=== PATIENT | female | born 1980 | race Caucasian/White ===

== ENCOUNTER → 2020-09-03 09:59 | Outpatient (BNVA) | payer OTHER, SELFPAY | PROVIDERS: PCP Internal Medicine; Visit Provider Advanced Practice Midwife ==

== ENCOUNTER 2023-09-07 10:59 | Outpatient (AMB) | payer OTHER, SELFPAY ==
--- NOTE | 2023-09-07 11:08 | MHC.PC.OV ---
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 Intake Note: New patient visit Investigative Research Specialist Required: No Allergies No Known Allergies [No Known Allergies*] Allergy (Verified 09/07/23 11:37) Medication List - Last Reconciled 09/07/23 by IRINEO Son cetirizine (Zyrtec) 10 mg PO DAILY PRN melatonin mg PO Tobacco use date assessed: 09/07/23 Dental Screening Dental Screen Date: 09/07/23 Did you have a dental visit in the last 12 months?: No Did you have a dental problem in the last 6 months where you did not have access to dental care?: No Was dental information given to patient?: No HPI HPI Comments History of Present Illness Details 43-year-old female with asthma, MDD, generalized anxiety disorder, migraines, family history of breast cancer maternal aunt, paternal grandmother with ovarian cancer, post depression Status post removal of cyst from the right shoulder, tonsillectomy, hymenectomy procedure with Dr. 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 Used imitrex in the past with + effect. Ran out refills Was on sertraline in the past. Anxious at baseline. MDD worse in the winter. Tries to help by exercising. Stopped taking only d/t running out of refills. Last time 2020. Tried celexa, stopped during child bearing years. Not in counseling at this time; Has used someone in the past in [facility]. Ok w/ restarting Using melatonin and benadryl to help sleep with + effect. Referred to pelvic floor PT. Having urinary incont. [facility] Medical History (Updated 09/07/23 @ 12:08 by IRINEO Son) Asthma Depression Anxiety Migraines Annual physical exam Surgical History (Updated 09/03/20 @ 10:32 by Liss Licea [facility]) H/O removal of cyst Hx of tonsillectomy Family History (Updated 09/07/23 @ 11:21 by Mariana Storm [facility]) Maternal Aunt H/O mastectomy Father HTN (hypertension) Hypercholesteremia Brother Melanoma Paternal Grandmother Ovarian cancer Paternal Uncle FH: mental illness Substance use Paternal Aunt FH: mental illness Substance use Other Diabetes Social History (Updated 09/07/23 @ 11:14 by Mariana Storm [facility]) Housing: House Alcohol intake: never Patient Tobacco Use Status: Never used Tobacco e-Cigarette/Vaping Use: Never Used service: No Current occupational status: employed 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 1. Little interest or pleasure in doing things: not at all 2. Feeling down, depressed, or hopeless: not at all 3. Trouble falling or staying asleep, or sleeping too much: not at all 4. Feeling tired or having little energy: not at all 5. Poor appetite or overeating: not at all 6. Feeling bad about yourself - or that you are a failure or have let yourself or your family down: not at all 7. Trouble concentrating on things, such as reading the newspaper or watching television: not at all 8. Moving or speaking so slowly that other people could have noticed. Or the opposite - being so fidgety or restless that you have been moving around a lot more than usual: not at all 9. Thoughts that you would be better off or of hurting yourself in some way: not at all Total score: 0 Depression Screening Interpretation: Negative 31522 - PHQ-9 Billing: Yes Source: Developed by Drs. Migue Moreno, Cari Bazan, Mukesh Fischer and colleagues, with an educational rj from [employer]. Thrive Questionnaire Date Thrive assessed: 09/07/23 I am a: Patient What is your living situation today?: I have a steady place to live Within the past 12 months, did the food you bought not last and you didn't have the money to get more?: Never true Within the past 12 months, did you worry whether your food would run out before you got money to buy more?: Never true Do you have trouble paying for medicines?: No Do you have trouble getting transportation to medical appointments?: No Do you have trouble paying your heating and electricity bill?: No Do you have trouble taking care of your child, family member or friend?: No Do you have trouble with day-to-day activities such as bathing, preparing meals, shopping, managing finances, etc.?: No Are you currently unemployed and looking for a job?: No Are you interested in more education?: No Please select the resources that you would like help with: None Currently or been in a relationship where the following occur: no concerns reported THRIVE Score: 0 AUDIT C Alcohol Use Questionnaire (AUDIT-C) 1. How often do you have a drink containing alcohol?: Never 3. How often do you have six or more drinks on one occasion?: Never Total Score: 0 Score Reviewed/Action Taken: Yes PAULA-7 AMB Questionnaire PAULA-7 Feeling nervous, anxious, or on edge: 3 = Nearly every day Not being able to stop or control worryin = More than half the days Worrying too much about different things: 2 = More than half the days Trouble relaxin = Several days Being so restless that it is hard to sit still: 0 = Not at all Becoming easily annoyed or irritable: 0 = Not at all Feeling afraid as if something awful might happen: 0 = Not at all Total PAULA-7 score (0-4 normal; 5-9 mild; 10-14 moderate; 15-21 severe): 8 Source: Developed by Drs. Migue Moreno, Cari Bazan, Mukesh Fischer and colleagues, with an educational rj from [employer]. PAULA-7 Assessment Billing PAULA-7 Assessment Tool: PAULA-7 Assessment 10584 Review of Systems Const Details: Constitutional: Denies fever. Skin: Denies rash. Eye: Denies eye pain. ENMT: Denies sore throat and nasal congestion. Respiratory: Denies shortness of breath and cough. Gastrointestinal: Denies nausea, vomiting or abdominal pain. Cardiovascular: Denies chest pain and syncope. Genitourinary: Denies dysuria. Musculoskeletal: Denies back pain and extremity pain. Neurologic: Denies confusion, and weakness. Psychiatric: Denies suicidal thoughts and substance abuse. Allergy/ Immunologic: Denies impaired immunity. Physical exam (Primary Care) Vital Signs: Last Vital Signs Temp 97.9 F 09/07/23 11:16 Pulse 71 09/07/23 11:16 Resp 12 09/07/23 11:16 BP 104/64 09/07/23 11:16 Pulse Ox 99 09/07/23 11:16 Oxygen Delivery Method Room Air 09/07/23 11:16 BMI result Body Mass Index 21.3 Tobacco/Smoking Status: Tobacco use Status Tobacco use date assessed 09/07/23 09/07/23 11:18 Patient Tobacco Use Status Never used Tobacco 09/07/23 11:18 e-Cigarette/Vaping Use Never Used 09/07/23 11:18 Depression Screening Interpretation: Negative Currently or been in a relationship where the following occur: no concerns reported Const Other: General: Well developed, well nourished, in no acute distress. Appears stated age. Head: Normocephalic, atraumatic. Eyes: Pupils are equal, round and reactive to light and accommodation. Conjunctivae are clear. Vision grossly normal. Ears: TMs clear AU, EACS WNL Nose: Patent, without discharge. Mouth: There are no ulcers or lesions noted. No inflammation, no post nasal drip, no plaques nor exudates. Neck: Supple, no adenopathy or thyromegaly. Lungs: Clear to auscultation bilaterally. No rales, rhonchi or wheeze noted. Good air flow in all thomas. Heart: Regular rate and rhythm. No murmurs, click, rubs or gallops are noted. Abdomen: Bowel sounds present in all quadrants. The abdomen is soft, nontender, with no masses or organomegaly noted. No hernias are noted. Musculoskeletal: Joints are nontender, without swelling, redness, or effusions. Range of motion is observed to be normal. Pulses: Peripheral pulses are equal and palpable bilaterally. Extremities: No clubbing, cyanosis nor edema is noted. Neurologic: Gait and station normal. Cranial Nerves 2-12 intact. Motor strength grossly symmetrical and intact. No sensory loss. Balance normal. Skin: No rashes, ulcers, or lesions noted. Turgor is good. Skin color is good. Hair and nails are without abnormalities. Psych: Normal eye contact, affect and mood appropriate, and normal interactions. Patient is alert and appropriate to context. Extremities: No clubbing, cyanosis or edema. Assessment and Plan Assessment & Plan (1) Annual physical exam: Comment: Patient reports a family history of lipoprotein a in her brother. He was managed in [place] by Cardiology. We will check lipoprotein today and refer to cards PRN Code(s): Z00.00 - Encounter for general adult medical examination without abnormal findings (2) Laboratory exam ordered as part of routine general medical examination: Code(s): Z00.00 - Encounter for general adult medical examination without abnormal findings (3) Urinary incontinence: Comment: Refer to pelvic floor physical therapy however on a wait list. We will refer to urology for further evaluation and treatment. Encouraged to try some home exercises. Code(s): R32 - Unspecified urinary incontinence Qualifiers: Urinary Incontinence type: stress incontinence Qualified Code(s): N39.3 - Stress incontinence (female) (male) (4) Migraine headache without aura: Comment: Managed well with Imitrex in the past. I have renewed this prescription. Code(s): G43.009 - Migraine without aura, not intractable, without status migrainosus Qualifiers: Status migrainosus presence: without status migrainosus Intractability: not intractable Qualified Code(s): G43.009 - Migraine without aura, not intractable, without status migrainosus (5) MDD (major depressive disorder), recurrent episode: Comment: See PAULA care plan Code(s): F33.9 - Major depressive disorder, recurrent, unspecified Qualifiers: Major depression episode severity: mild Qualified Code(s): F33.0 - Major depressive disorder, recurrent, mild (6) PAULA (generalized anxiety disorder): Comment: Was on Celexa during child bearing years and then was switched to sertraline. She has been without this since 2020. Would like to restart. The plan will be to start sertraline 12.5 mg p.o. daily x2 weeks then increase to 25 mg p.o. daily. Declined referral to counselor today however she has resources to schedule an appointment should she feel this will be beneficial to her. Code(s): F41.1 - Generalized anxiety disorder Orders: Orders Comprehensive Met. Panel Today Z00.00 - Encounter for general adult medical examination without abnormal findings Hemoglobin A1c Today Z00.00 - Encounter for general adult medical examination without abnormal findings LDL Cholesterol Direct Today Z00.00 - Encounter for general adult medical examination without abnormal findings Microalbumin, Random (w Creat) Today Z00.00 - Encounter for general adult medical examination without abnormal findings Vitamin D 1,25 dihydroxy Today Z00.00 - Encounter for general adult medical examination without abnormal findings Lipoprotein A Today Z00.00 - Encounter for general adult medical examination without abnormal findings MM tomosynthesis screening BI Today Z12.31 - Encounter for screening mammogram for malignant neoplasm of breast TSH reflex Free T4 Today Z00.00 - Encounter for general adult medical examination without abnormal findings Referrals Urology Referral R32 - Unspecified urinary incontinence Medications: New sumatriptan succinate (Imitrex) take 1 tab at onset of headache; if no relief may repeat 1 tab after at least 2 hrs; max = 4 tabs/24 hr PO 10 tabs 5RF sertraline 1/2 tab QD x 2 weeks then increase to 1 tab QD 25 mg PO DAILY 30 tabs 1RF Patient Instructions: Return to office in 6 weeks to follow up on sertraline start. Sooner if needed. Health screenings for women ages 18 to 39 You should visit your health care provider from time to time, even if you are healthy. The purpose of these visits is to: Screen for medical issues Assess your risk for future medical problems Encourage a healthy lifestyle Update vaccinations and other preventive care services Help you get to know your provider in case of an illness Information Even if you feel fine, you should still see your provider for regular checkups. These visits can help you avoid problems in the future. For example, the only way to find out if you have high blood pressure is to have it checked regularly. High blood sugar and high cholesterol levels also may not have any symptoms in the early stages. A simple blood test can check for these conditions. There are specific times when you should see your provider or receive specific health screenings. The [place] Preventive Services Task Force publishes a list of recommended screenings. Below are screening guidelines for women ages 18 to 39. BLOOD PRESSURE SCREENING Your blood pressure should be checked at least once every 3 to 5 years if: Your blood pressure is in the normal range (top number less than 120 mm Hg and bottom number less than 80 mm Hg) You don't have risk factors for high blood pressure Ask your provider if you need your blood pressure checked more often if: The top number is 120 to 129 mm Hg or the bottom number is 70 to 79 mm Hg You have diabetes, heart disease, kidney problems, are overweight, or have certain other health conditions You have a first-degree relative with high blood pressure You are Black You had high blood pressure during a If the top number is 130 mm Hg or greater or the bottom number is 80 mm Hg or greater, this is considered stage 1 hypertension. Schedule an appointment with your provider to learn how you can reduce your blood pressure. Watch for blood pressure screenings in your area. Ask your provider if you can stop in to have your blood pressure checked. BREAST CANCER SCREENING Experts do not agree about the benefits of breast self-exams in finding breast cancer or saving lives. Talk to your provider about what is best for you. A screening mammogram is not recommended for most women under age 40. Your provider may discuss and recommend mammograms, MRI scans, or ultrasounds if you have an increased risk for breast cancer, such as: A mother or sister who had breast cancer at a young age (most often starting screening earlier than the age the close relative was diagnosed) You carry a high-risk genetic marker CERVICAL CANCER SCREENING Cervical cancer screening should start at age 21 years unless your provider advises otherwise. After the first test: Women ages 21 through 29 should have a Pap test every 3 years. Exoprts do not agree on whether HPV testing is recommended for this age group. Women ages 30 through 65 should be screened with either a Pap test every 3 years or the HPV test every 5 years or both tests every 5 years (called cotesting ). Women who have been treated for precancer (cervical dysplasia) should continue to have Pap tests for 20 years after treatment or until age 65, whichever is longer. If you have had your uterus and cervix removed (total hysterectomy), and you have not been diagnosed with cervical cancer or precancer (high grade cervical neoplasia), you do not need cervical cancer screening. CHOLESTEROL SCREENING Cholesterol screening should begin at: Age 45 for women with no known risk factors for coronary heart disease Age 20 for women with known risk factors for coronary heart disease Repeat cholesterol screening should take place: Every 5 years for women with normal cholesterol levels More often if changes occur in lifestyle (including weight gain and diet) More often if you have diabetes, heart disease, kidney problems, or certain other conditions DIABETES SCREENING You should be screened for diabetes starting at age 35 and then repeated every 3 years if you have no risk factors for diabetes. Screening may need to start earlier and be repeated more often if you have other risk factors for diabetes, such as: You have a first degree relative with diabetes. You are overweight or have obesity. You have high blood pressure, prediabetes, or a history of heart disease. Screening for diabetes should be done if you are planning to become and you are overweight and have other risk factors such as high blood pressure. DENTAL EXAM Go to the dentist once or twice every year for an exam and cleaning. Your dentist will evaluate if you need more frequent visits. EYE EXAM Have an eye exam every 5 to 10 years before age 40. If you have vision problems, have an eye exam every 2 years or more often if recommended by your provider. You should have an eye exam that includes an examination of your retina (back of your eye) at least every year if you have diabetes. IMMUNIZATIONS Commonly needed vaccines include: Flu shot: get one every year. COVID-19 vaccine: ask your provider what is best for you. Tetanus-diphtheria and acellular pertussis (Tdap) vaccine: have one at or after age 19 as one of your tetanus-diphtheria vaccines if you did not receive it as an adolescent. Tetanus-diphtheria: have a booster (or Tdap) every 10 years. Varicella vaccine: receive 2 doses if you never had chickenpox or the varicella vaccine. Hepatitis B vaccine: receive 2, 3, or 4 doses, depending on your exact circumstances. Measles, mumps, and rubella (MMR) vaccine: receive 1 to 2 doses if you are not already immune to MMR. Your provider can tell you if you are immune. Ask your provider about the human papillomavirus (HPV) vaccine if: You have not received the HPV vaccine in the past You have not completed the full vaccine series (you should catch up on this shot) Ask your provider if you should receive other immunizations if you have certain health problems that increase your risk for some diseases such as pneumonia. INFECTIOUS DISEASE SCREENING Women who are sexually active should be screened for chlamydia and gonorrhea up until age 25. Women 25 years and older should be screened for chlamydia and gonorrhea if at high risk. Screening for hepatitis C: All adults ages 18 to 79 should get a one-time test for hepatitis C. people should be screened at every . Screening for human immunodeficiency virus (HIV): All people ages 15 to 65 should get a one-time test for HIV. Depending on your lifestyle and medical history, you may also need to be screened for infections such as syphilis and HIV, as well as other infections. PHYSICAL EXAM All adults should visit their provider from time to time, even if they are healthy. The purpose of these visits is to: Screen for disease Assess your risk of future medical problems Encourage a healthy lifestyle Update your vaccinations and other preventive care services Maintain a relationship with a provider in case of an illness Your height, weight, and BMI should be checked at every exam. During your exam, your provider may ask you about: Depression and anxiety Diet and exercise Alcohol and tobacco use Safety issues, such as using seat belts, smoke detectors, and intimate partner violence Your medicines and risk for interactions SKIN SELF-EXAM Your provider may check your skin for signs of skin cancer, especially if you're at high risk, such as if you: Have had skin cancer before Have close relatives with skin cancer Have a weakened immune system OTHER SCREENING Talk with your provider about colon cancer screening if you have a strong family history of colon cancer or polyps, or if you have had inflammatory bowel disease or polyps yourself. Routine bone density screening of women under 40 is not recommended. Coding Level of Care Code Est Pt Prev Care 40-64y(77597) Diagnoses Annual physical exam Z00.00 Laboratory exam ordered as part of routine general medical examination Z00.00 Stress incontinence of urine N39.3 Urinary Incontinence type: stress incontinence Migraine without aura and without status migrainosus, not intractable G43.009 Status migrainosus presence: without status migrainosus Intractability: not intractable Mild episode of recurrent major depressive disorder F33.0 Major depression episode severity: mild PAULA (generalized anxiety disorder) F41.1 Additional Codes PAULA-7 Assessment Billing - PAULA-7 Assessment Tool: PAULA-7 Assessment [id number] ([id number])
[2023-09-07 11:16] VITALS: BP 104/64; PULSE 71; RESP 12; TEMP 36.6; O2SAT 99; BMI 21.3
== END 2023-09-07 12:15 | disposition home or self-care (01) ==
PROVIDERS: Visit Provider Nurse Practitioner Family
DX: Z00.00 Encounter for general adult medical examination without abnormal findings (principal); N39.3 Stress incontinence (female) (male); G43.009 Migraine without aura, not intractable, without status migrainosus; F33.0 Major depressive disorder, recurrent, mild; F41.1 Generalized anxiety disorder
CPT/HCPCS: 99396

== ENCOUNTER 2023-09-07 12:03 | Outpatient (REF) | payer OTHER, SELFPAY ==
[2023-09-07 15:00] LABS: Estimated Average Glucose 97 mg/dL
[2023-09-07 15:42] LABS: Microalbum/Creatinine Ratio Ur 137.7 ug/mg cr (<30)
[2023-09-07 15:45] LABS: Alanine Aminotransferase 9 U/L (0-31); Albumin Level 4.2 g/dL (3.5-5.0); Alkaline Phosphatase 63 U/L (39-117); Anion Gap 13 (12-20); Aspartate Amino Transferase 12 U/L (5-31); Bilirubin Total 0.3 mg/dL (0.0-1.0); Blood Urea Nitrogen 8 mg/dL (9-16); Calcium 9.4 mg/dL (8.4-10.2); Carbon Dioxide 27 mmol/L (22-29); Chloride 105 mmol/L (96-108); Estimated Glomerular Filt Rate > 60; Glucose Random 103 mg/dL (60-115); Potassium 3.5 mmol/L (3.3-5.1); Sodium 141 mmol/L (135-145); Total Protein 7.4 g/dL (6.5-8.0)
[2023-09-07 16:02] LABS: TSH reflex Free T4 0.56 uIU/mL (0.32-4.0)
[2023-09-08 06:34] LABS: LDL Cholesterol Direct 89 mg/dL (<100)
[2023-09-11 16:13] LABS: VITAMIN D (1,25 OH) D3 49 pg/mL; Vit D (1,25-Dihydroxy) Total 49 pg/mL (18-72); Vitamin D (1,25 OH) D2 <8 pg/mL
[2023-09-13 22:18] LABS: Lipoprotein A 16 nmol/L (<75)
== END 2023-09-07 12:04 | disposition home or self-care (01) ==
LOC: HO.WFDLDS 12:03
PROVIDERS: Visit Provider Nurse Practitioner Family
DX: Z00.00 Encounter for general adult medical examination without abnormal findings (principal)
CPT/HCPCS: 36415; 80053; 82043; 82570; 82652; 83036; 83695; 83721; 84443

== ENCOUNTER 2023-09-27 13:43 | Outpatient (REF) | payer OTHER, SELFPAY ==
--- NOTE | ~2023-09-27 | MM_ITS ---
EXAMINATION: MM SCREENING DIGITAL BREAST TOMOSYNTHESIS, BILATERAL CLINICAL INFORMATION: Screening. Asymptomatic. COMPARISON: Mammography: This is a baseline mammogram. TECHNIQUE: Digital breast tomosynthesis is performed in both the craniocaudal and mediolateral oblique views along with computer-aided detection (CAD). Synthesized 2D images are generated from the tomosynthesis. FINDINGS: The breasts are heterogeneously dense, which may obscure small masses (ACR BI-RADS breast composition Category c). There are calcifications superior aspect of the left breast which warrant additional mammographic imaging magnification. In the right breast, there are no significant masses, abnormal calcifications, or other abnormalities. MM/MM tomosynthesis screening BI IMPRESSION: Left breast calcifications warrant additional mammographic imaging with magnification. No mammographic signs of malignancy right breast. ASSESSMENT: BI-RADS BI-RADS 0 - Incomplete: Needs additional Imaging. RECOMMENDATION: Additional views of the left breast. Radiology department staff will contact the patient for additional imaging. Additional Imaging required This examination should not preclude the clinical evaluation of a suspicious palpable abnormality. This patient's information was entered into a reminder system with a target due date for their next mammogram.
== END 2023-09-27 13:44 | disposition home or self-care (01) ==
LOC: HO.MAMMO 13:43
PROVIDERS: PCP Internal Medicine; Visit Provider Nurse Practitioner Family
DX: Z12.31 Encounter for screening mammogram for malignant neoplasm of breast (principal)
CPT/HCPCS: 77063; 77067

== ENCOUNTER → 2023-09-27 13:45 | Outpatient (BNV) | payer OTHER, SELFPAY | PROVIDERS: PCP Internal Medicine; Visit Provider Radiology Diagnostic Radiology | DX: Z12.31 Encounter for screening mammogram for malignant neoplasm of breast (principal) | CPT/HCPCS: 77063; 77067 ==

== ENCOUNTER 2023-10-22 12:26 | Outpatient (AMB) | payer OTHER, SELFPAY ==
--- NOTE | 2023-10-22 12:31 | A.OFFPC_ITS ---
Vital Signs 10/22/23 12:35 Height 5 ft 4.96 in Weight 128 lb BMI 21.3 BP 110/66 Blood Pressure Location Lt brachial Position Sitting Pulse 64 Pulse Source Pulse Oximeter Pulse Oximetry (%) 99 Oxygen Delivery Method Room Air Intake Visit Reasons: 6 weeks 30 min w me f/u sertraline start Intake Note: Patient is here to follow up on sertraline. Allergies No Known Allergies [No Known Allergies*] Allergy (Verified 10/22/23 12:47) Medication List - Last Reconciled 10/22/23 by Jessica Perry, JOSE ALBERTO- cetirizine (Zyrtec) 10 mg PO DAILY PRN melatonin mg PO sertraline 25 mg PO DAILY sumatriptan succinate (Imitrex) take 1 tab at onset of headache; if no relief may repeat 1 tab after at least 2 hrs; max = 4 tabs/24 hr PO Tobacco use date assessed: 09/07/23 Dental Screening Dental Screen Date: 09/07/23 HPI HPI Comments History of Present Illness Details 43-year-old female with asthma, MDD, gen eralized anxiety disorder, migraines, family history of breast cancer maternal aunt, paternal grandmother with ovarian cancer Status post removal of cyst from the right shoulder, tonsillectomy, hymenectomy procedure with Dr. Gómez after child Family history: Brother with melanoma, father with hypertension Health maintenance Pap 09/03/2020 Mammogram 10/2023 BI-RADS BI-RADS 0 - Incomplete: Needs additional Imaging. 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 Cont to have some anxiety but not as severe Has not est care w/ counselor as of this time Cont to exercise to help cope + microalbumin will repeat today , stat es she is well hydrated. [facility] Medical History (Updated 10/22/23 @ 12:59 by JOSE ALBERTO Son-RODRICK) Asthma Depression Anxiety Migraines Annual physical exam Surgical History (Updated 09/03/20 @ 10:32 by Liss Licea, [facility]) H/O removal of cyst Hx of tonsillectomy Family History (Updated 09/07/23 @ 11:21 by Mariana Storm CMA) Maternal Aunt H/O mastectomy Father HTN (hypertension) Hypercholesteremia Brother Melanoma Paternal Grandmother Ovarian cancer Paternal Uncle FH: mental illness Substance use Paternal Aunt FH: mental illness Substance use Other Diabetes Social History (Updated 09/07/23 @ 11:14 by Mariana Storm CMA) Housing: House Alcohol intake: never Patient Tobacco Use Status: Never used Tobacco e-Cigarette/Vaping Use: Never Used service: No Current occupational status: employed 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 1. Little interest or pleasure in doing things: several days 2. Feeling down, depressed, or hopeless: not at all 3. Trouble falling or staying asleep, or sleeping too much: nearly every day 4. Feeling tired or having little energy: not at all 5. Poor appetite or overeating: not at all 6. Feeling bad about yourself - or that you are a failure or have let yourself or your family down: not at all 7. Trouble concentrating on things, such as reading the newspaper or watching television: several days 8. Moving or speaking so slowly that other people could have noticed. Or the opposite - being so fidgety or restless that you have been moving around a lot more than usual: not at all 9. Thoughts that you would be better off or of hurting yourself in some way: not at all Total score: 5 Depression Screening Interpretation: Negative Depression Screening Done: Yes 10532 - PHQ-9 Billing: Yes Source: Developed by Drs. Migue Moreno, Cari Bazan, Mukesh Fischer and colleagues, with an educational rj from [email or web address]. Thrive Questionnaire Date Thrive assessed: 09/07/23 PAULA-7 AMB Questionnaire PAULA-7 Date PAULA - 7 assessed: 10/22/23 Feeling nervous, anxious, or on edge: 1 = Several days Not being able to stop or control worryin = Several days Worrying too much about different things: 0 = Not at all Trouble relaxin = Several days Being so restless that it is hard to sit still: 0 = Not at all Becoming easily annoyed or irritable: 0 = Not at all Feeling afraid as if something awful might happen: 0 = Not at all Total PAULA-7 score (0-4 normal; 5-9 mild; 10-14 moderate; 15-21 severe): 3 Source: Developed by Drs. Migue Moreno, Cari Bazan, Mukesh Fischer and colleagues, with an educational rj from [email or web address]. PAULA-7 Assessment Billing PAULA-7 Assessment Tool: PAULA-7 Assessment 39191 Review of Systems Const All systems reviewed & are unremarkable except as noted in HPI and below Physical exam (Primary Care) Vital Signs: Last Vital Signs Pulse 64 10/22/23 12:35 BP 110/66 10/22/23 12:35 Pulse Ox 99 10/22/23 12:35 Oxygen Delivery Method Room Air 10/22/23 12:35 BMI result Body Mass Index 21.3 Tobacco/Smoking Status: Tobacco use Status Tobacco use date assessed 09/07/23 10/22/23 12:32 Patient Tobacco Use Status Never used Tobacco 10/22/23 12:32 e-Cigarette/Vaping Use Never Used 10/22/23 12:32 PHQ-9: PHQ-9 Score PHQ-9: Total score 5 10/22/23 12:47 Depression Screening Interpretation: Negative Thrive Assessment: Date of Thrive Assessment Date Thrive assessed 09/07/23 10/22/23 12:32 Const Other: awake alert NAD MMM RRR LS CTAB No CVAT Mood and affect appropriate Assessment and Plan Assessment & Plan (1) Microalbuminuria: Comment: 09/07/23 advised to hydrate, repeat obtained today Code(s): R80.9 - Proteinuria, unspecified (2) MDD (major depressive disorder), recurrent episode: Comment: See PAULA care plan Code(s): F33.9 - Major depressive disorder, recurrent, unspecified Qualifiers: Major depression episode severity: mild Qualified Code(s): F33.0 - Major depressive disorder, recurrent, mild (3) PAULA (generalized anxiety disorder): Comment: Was on Celexa during child bearing years and then was switched to sertraline. She has been without this since 2020. Will est care w/ counselor on her own Code(s): F41.1 - Generalized anxiety disorder Plan: This note is constructed using voice recognition software. While every effort has been made to ensure accuracy in proprietary trader, still errors may have been included Sometimes, these errors may affect the content or meaning of the given sentence . Total time spent caring for the patient today was 30 minutes. This includes time spent before the visit reviewing the chart, time spent during the visit, and time spent after the visit on documentation Orders: Orders Microalbumin, Random (w Creat) Today R80.9 - Proteinuria, unspecified Medications: New sertraline 50 mg PO DAILY 30 tabs 1RF Discontinued sertraline 1/2 tab QD x 2 weeks then increase to 1 tab QD Discontinued Reason: Doctor's Order 25 mg PO DAILY 30 tabs 1RF Patient Instructions: Increase sertraline from 25 mg daily to 50 mg daily. Establish care with a counselor Return to office in 6-8 weeks to follow up the increased. Sooner as needed. Coding Level of Care Code Est Pt Level 4 (41305) Diagnoses Microalbuminuria R80.9 Mild episode of recurrent major depressive disorder F33.0 Major depression episode severity: mild PAULA (generalized anxiety disorder) F41.1 Additional Codes PAULA-7 Assessment Billing - PAULA-7 Assessment Tool: PAULA-7 Assessment 24858 ([id number])
[2023-10-22 12:35] VITALS: BP 110/66; PULSE 64; O2SAT 99; BMI 21.3
== END 2023-10-22 12:59 | disposition home or self-care (01) ==
PROVIDERS: PCP Nurse Practitioner Family; Visit Provider Nurse Practitioner Family
DX: R80.9 Proteinuria, unspecified (principal); F33.0 Major depressive disorder, recurrent, mild; F41.1 Generalized anxiety disorder
CPT/HCPCS: 99214

== ENCOUNTER 2023-10-22 12:55 | Outpatient (REF) | payer OTHER, SELFPAY ==
[2023-10-22 15:34] LABS: Creatinine Urine 43.09 mg/dL; Microalbumin Urine < 5.0 mg/L
== END 2023-10-22 12:56 | disposition home or self-care (01) ==
LOC: HO.LAB 12:55
PROVIDERS: Visit Provider Nurse Practitioner Family
DX: R80.9 Proteinuria, unspecified (principal)
CPT/HCPCS: 82043; 82570

== ENCOUNTER 2023-10-29 09:24 | Outpatient (AMB) | payer OTHER, SELFPAY ==
--- NOTE | 2023-10-29 09:31 | A.OFFVIS_ITS ---
Intake Visit Reasons: Urinary incontinence Intake Note: New Patient is Present for Urinary Incontinence Urology Medication: None Antibiotic Allergies: None Blood Thinners: None PVR: 0 Cab Supervisor Required: No Allergies No Known Allergies [No Known Allergies*] Allergy (Verified 10/29/23 09:37) HPI Comments Details: 43-year-old female here for evaluation urinary incontinence. Past medical history asthma, MDD, generalized anxiety disorder, migraines, 2 vaginal deliveries 05/2013 (about 7-1/2 lb), 04/2014 (approximately 9 lb). She complains of urinary leakage associated with activities running, sneezing coughing. She does note an urge component as well. Urinalysis: Leukocytes negative blood negative. Bladder scan PVR 0 mL. The patient has tried Kegel's, but has not seen a pelvic floor physical therapist as yet. Plan discussed will refer to pelvic floor physical therapy however there has been a long wait list in the surrounding area, we will check renal bladder ultrasound and I have discussed evaluation with urodynamics. [facility] Medical History (Updated 10/29/23 @ 10:05 by Allen Edward MD) Hx: UTI (urinary tract infection) Asthma Depression Anxiety Migraines Annual physical exam Surgical History H/O removal of cyst Hx of tonsillectomy Family History Maternal Aunt H/O mastectomy Father HTN (hypertension) Hypercholesteremia Brother Melanoma Paternal Grandmother Ovarian cancer Paternal Uncle FH: mental illness Substance use Paternal Aunt FH: mental illness Substance use Other Diabetes Social History Housing: House Alcohol intake: never Patient Tobacco Use Status: Never used Tobacco e-Cigarette/Vaping Use: Never Used service: No Current occupational status: employed 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 Current occupational exposures/hazards: No Gender identity: Female Cognitive needs: No Hearing needs: No Vision needs: No Female Reproductive History Menstrual Age of Menarche: 12 Review of Systems Const All systems reviewed & are unremarkable except as noted in HPI and below Reports no additional complaints Eyes Reports no additional complaints ENT Reports no additional complaints Card Reports no additional complaints Resp Reports no additional complaints GI Reports no additional complaints Reports as per HPI Musc Reports no additional complaints Skin/Breast Reports system reviewed and no additional complaints, except as documented Neuro Reports no additional complaints Psych Reports no additional complaints Endo Reports no additional complaints Joseph/Lymph Reports no additional complaints Aller/Immun Reports no additional complaints Physical Exam Const General: cooperative, healthy appearing and no acute distress Orientation/consciousness: patient oriented x3 HEENT Head: Yes normal to inspection, Yes normocephalic and Yes atraumatic Eyes Conjunctivae: conjunctivae normal Neck Neck: Yes normal visual inspection and Yes trachea midline Chest Chest palpation & inspection: normal inspection of the chest Resp Effort & Inspection: normal respiratory effort Cardio Rate: regular rate GI Inspection: Yes normal to inspection Skin General skin exam: no rashes or lesions noted Neuro General: patient oriented x3 Extrem General: No edema Psych Appearance: grossly normal Office Procedures Post Void Residual Post Residual Void Post Void Residual (PVR): 0 [id number] Void Residual by ultrasound Results AMB Urinalysis, Automated UA Leukoctes 0 Mirna/uL Last Edit by Sharda Hammond [facility] on 10/29/23 09:47 UA Nitrite Negative Last Edit by Sharda Hammond [facility] on 10/29/23 09:47 UA Urobilinogen 0.2 mg/dL Last Edit by Sharda Hammond [facility] on 10/29/23 09:4 7 UA Protein 0 mg/dL Last Edit by Sharda Hammond [facility] on 10/29/23 09:47 UA pH 6.0 Last Edit by Sharda Hammond [facility] on 10/29/23 09:47 UA Blood 0 José Miguel/uL Last Edit by Sharda Hammond [facility] on 10/29/23 09:47 UA Specific [place] 1.010 Last Edit by Sharda Hammond [facility] on 10/29/23 09: 47 UA Ketone Negative Last Edit by Sharda Hammond [facility] on 10/29/23 09:47 UA Bilirubin 0 mg/dL Last Edit by Sharda Hammond [facility] on 10/29/23 09:47 UA Glucose 0 mg/dL Last Edit by Sharda Hammond [facility] on 10/29/23 09:47 Assessment & Plan Assessment & Plan (1) Urinary incontinence: Code(s): R32 - Unspecified urinary incontinence Category: Medical Qualifiers: Urinary Incontinence type: stress incontinence Qualified Code(s): N39.3 - Stress incontinence (female) (male) (2) Urinary urgency: Code(s): R39.15 - Urgency of urination Category: Medical (3) JOLENE (stress urinary incontinence, female): Code(s): N39.3 - Stress incontinence (female) (male) Category: Medical Plan Plan discussed will refer to pelvic floor physical therapy however there has been a long wait list in the surrounding area, we will check renal bladder ultrasound and I have discussed evaluation with urodynamics. Orders: Orders AMB Post Void Residual by ultrasound Today N39.3 - Stress incontinence (female) (male) AMB Urinalysis Automated Today Z13.9 - Encounter for screening, unspecified US retroperitoneal comp Today N39.3 - Stress incontinence (female) (male), R39.15 - Urgency of urination Patient Instructions: The patient had an opportunity to ask questions regarding treatment plan. The patient expressed understanding and agreement with the above treatment plan. The patient is aware they should contact our office by phone for worsening of their current condition or the appearance of new symptoms. Compliance is encouraged with any medications and followup testing that is ordered. It is a privilege to be allowed the opportunity to participate in the urologic care of your patient. If you have any questions or concerns regarding treatment for the above conditions please do not hesitate to contact me. The office telephone contact is [phone]. This note is constructed in part using voice recognition software. While every effort has been made to ensure accuracy senior chemical engineer errors may have been included. Yours sincerely, Allen Edward MD Coding Level of Care Code New Pt Level 4 (55235) Diagnoses Stress incontinence of urine N39.3 Urinary Incontinence type: stress incontinence Urinary urgency R39.15 JOLENE (stress urinary incontinence, female) N39.3 CPT Codes Post Residual Void - PVR CPT Code: 83275-Wiyj Void Residual by ultrasound ([id number])
== END 2023-10-29 10:14 | disposition home or self-care (01) ==
PROVIDERS: Visit Provider Urology
DX: N39.3 Stress incontinence (female) (male) (principal); R39.15 Urgency of urination; Z13.9 Encounter for screening, unspecified
CPT/HCPCS: 99204

== ENCOUNTER → 2023-10-29 09:24 | Outpatient (BNVA) | payer OTHER, SELFPAY | PROVIDERS: Visit Provider Urology | DX: N39.3 Stress incontinence (female) (male) (principal); R39.15 Urgency of urination | CPT/HCPCS: 51798; 81003 ==

== ENCOUNTER 2023-11-02 14:56 | Outpatient (REF) | payer OTHER, SELFPAY ==
--- NOTE | ~2023-11-02 | US_ITS ---
EXAMINATION: MM DIAGNOSTIC DIGITAL MAMMOGRAPHY, LEFT DIAGNOSTIC ULTRASOUND: LEFT CLINICAL INFORMATION: Follow-up left breast grouped calcifications seen mid depth 11:00 axis. COMPARISON: Mammography: 09/27/2023 screening baseline mammography. TECHNIQUE: Digital mammography is performed in the following views: 2-D spot magnification left CC and ML views. FINDINGS: The breasts are heterogeneously dense, which may obscure small masses (ACR BI-RADS breast composition Category c). There are regional subtle calcifications throughout the upper and lower aspects of the left breast. These have a benign appearance without clustering. There is a more focal group of calcifications in the 11:00 axis left breast, middle one third, which appears indeterminate. This is forming a circular shape, and may be conforming to an underlying mass or cyst. We will conduct ultrasound to exclude this possibility. No additional suspicious findings left breast. ULTRASOUND: CLINICAL INFORMATION: Evaluate for mass underlying grouped calcifications forming a rounded appearance. COMPARISON: None TECHNIQUE: Targeted sonographic evaluation was performed using a high frequency linear transducer. Attention to the left breast 11:00 axis was given. Both the technologist and myself scanned. Selected archived documentation. FINDINGS: LEFT BREAST: There is heterogeneously dense breast parenchyma present. No masses, cystic abnormalities, abnormal shadowing, parenchymal distortion is identified. No definite mass or cyst could be identified due to associated with the expected calcifications at 11:00. US/US breast LT limited mamm only IMPRESSION: Indeterminate calcifications LEFT breast 11:00 axis, middle one third. Recommend stereotactic biopsy of these calcifications. Findings and recommendations were discussed with the patient in detail. She is in agreement with the overall pattern. OVERALL ASSESSMENT: Mammography: BI-RADS 4 - Suspicious finding Ultrasound: BI-RADS 4 - Suspicious finding RECOMMENDATION: Biopsy recommended
== END 2023-11-02 14:57 | disposition home or self-care (01) ==
LOC: HO.MAMMO 14:56
PROVIDERS: PCP Nurse Practitioner Family; Visit Provider Internal Medicine
DX: R92.1 Mammographic calcification found on diagnostic imaging of breast (principal)
CPT/HCPCS: 76642; 77065

== ENCOUNTER → 2023-11-02 15:00 | Outpatient (BNV) | payer OTHER, SELFPAY | PROVIDERS: PCP Nurse Practitioner Family; Visit Provider Radiology Diagnostic Radiology | DX: R92.1 Mammographic calcification found on diagnostic imaging of breast (principal) | CPT/HCPCS: 76642; 77065 ==

== ENCOUNTER 2023-11-15 09:53 | Outpatient (REF) | payer OTHER, SELFPAY ==
--- NOTE | ~2023-11-15 | MM_ITS ---
EXAMINATION: STEREOTACTIC TOMOSYNTHESIS-GUIDED VACUUM-ASSISTED BREAST BIOPSY, LEFT SPECIMEN RADIOGRAPH, LEFT POST PROCEDURE DIGITAL MAMMOGRAM, LEFT CLINICAL INFORMATION: Indeterminate/suspicious grouped calcifications 11:00 axis left breast, middle depth, recommended for stereotactic biopsy. COMPARISON: Mammography 10/25/2023, 09/27/2023. TECHNIQUE/PROCEDURE: Informed consent was obtained from the patient after discussion of the benefits, risks, and alternatives to biopsy today. Patient appeared to understand. Gave opportunity for questions. Patient signed consent form. BIOPSY TABLE: [employer] Affirm Prone Biopsy System. LESION: Grouped calcifications 11:00 axis left breast middle depth. LOCAL ANESTHESIA: 4 mL 1% lidocaine; 9 mL 1% lidocaine with epinephrine. DERMATOTOMY: Single skin naomi dermatotomy performed. NEEDLE: [employer] Eviva 9-gauge vacuum assisted core biopsy device. APPROACH: lateral medial using lateral arm approach. TARGETING: Digital breast tomosynthesis used for targeting. CORES: 5. CLIP: [employer] SecurMark Cylinder-shaped marker. SPECIMEN RADIOGRAPH: Specimen radiograph is taken in separate room using digital mammography. The index calcifications are in the excised cores. Several of the calcifications remain in the breast. POST PROCEDURE UNILATERAL DIGITAL MAMMOGRAM: The post biopsy mammogram is performed in separate room using separate digital mammography equipment from the biopsy procedure. CC and ML 3-D views are obtained. The breasts are heterogeneously dense, which may obscure small masses (breast composition category: c). The clip marker is in position. The calcifications are markedly decreased at the biopsy site. No gross hematoma. The patient tolerated the procedure well. No immediate complications. Home instructions reviewed with the patient. Final pathology results are pending. MM/MM stereotactic biopsy LT IMPRESSION: 1. Digital tomosynthesis-guided core biopsy left breast calcifications 11:00 axis left breast with clip placement. 2. Specimen radiograph taken and post procedure mammogram. There is satisfactory positioning of the biopsy clip. 3. Final pathology results pending. An addendum report will be issued.
[2023-11-15] MEDS: Sodium Bicarbonate 8.4% 50 MEQ/50 ML VIAL SUBCUT (11:24)
[2023-11-15] MEDS: Lidocaine HCl 1 % 20 ML VIAL 18 ML SUBCUT (11:26)
== END 2023-11-15 09:54 | disposition home or self-care (01) ==
LOC: HO.MAMMO 09:53
PROVIDERS: PCP Internal Medicine; Visit Provider Surgery
DX: R92.1 Mammographic calcification found on diagnostic imaging of breast (principal)
CPT/HCPCS: 19081; 88305; A4648

== ENCOUNTER → 2023-11-15 10:00 | Outpatient (BNV) | payer OTHER, SELFPAY | PROVIDERS: PCP Internal Medicine; Visit Provider Radiology Diagnostic Radiology | DX: R92.1 Mammographic calcification found on diagnostic imaging of breast (principal) | CPT/HCPCS: 19081; 77065 ==

== ENCOUNTER 2023-11-27 10:59 | Outpatient (AMB) | payer OTHER, SELFPAY ==
--- NOTE | 2023-11-27 11:02 | MHC.OFFVIS ---
Vital Signs 11/27/23 11:10 Height 5 ft 4 in Weight 124 lb BMI 21.3 BP 109/56 L Blood Pressure Location Lt brachial Position Sitting Pulse 54 Intake Visit Reasons: biopsy results (not seen pre-bx) Intake Note: Patient is seen in office for stereotactic biopsy results, following left breast for calcifications. 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 This was performed at the [facility] on 11/15/2023. Subsequent pathology revealed fibrocystic change with columnar cell change, sclerosing adenosis with microcalcifications, and radial sclerosing lesion/radial scar, no evidence of malignancy. She denies a previous history of breast problems or breast surgery. Her family history is significant for a maternal aunt with breast cancer and paternal grandmother with ovarian cancer. She also reports several great aunts with breast cancer and her brother was treated for melanoma. She denies a previous history of breast problems or breast surgeries. She is . [facility] Medical History Hx: UTI (urinary tract infection) Asthma Depression Anxiety Migraines Annual physical exam Surgical History H/O removal of cyst Hx of tonsillectomy Family History Maternal Aunt H/O mastectomy Breast CA, Onset Age: 36 Father HTN (hypertension) Hypercholesteremia Brother Melanoma Paternal Grandmother Ovarian cancer Paternal Uncle FH: mental illness Substance use Paternal Aunt FH: mental illness Substance use Other Diabetes Social History Housing: House Alcohol intake: never Patient Tobacco Use Status: Never used Tobacco e-Cigarette/Vaping Use: Never Used service: No Current occupational status: employed 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 Current occupational exposures/hazards: No Gender identity: Female Cognitive needs: No Hearing needs: No Vision needs: No Female Reproductive History Menstrual Age of Menarche: 12 Date of last menstrual period: 10/25/23 Total pregnancies: 2 Number of Living Children: 2 Review of Systems Const All systems reviewed & are unremarkable except as noted in HPI and below Denies chills, Denies fever(s), Reports headache(s), Denies poor appetite and Denies weakness ENT Reports headache(s) Card Denies chest pain, Denies irregular heart rhythm, Denies palpitations and Denies dyspnea Resp Denies cough, Denies excessive phlegm production and Denies dyspnea GI Denies abdominal pain, Denies bloating, Denies change in bowel habits, Denies constipation, Denies heartburn, Denies diarrhea, Denies nausea and Denies vomiting Denies urinary frequency Musc Denies back pain, Denies muscle weakness and Denies numbness Skin/Breast Denies changing lesions and Denies unusual bruising Neuro Reports headache(s), Denies numbness, Denies paresthesias and Denies weakness Psych Denies anxiety and Denies depression Endo Denies palpitations Joseph/Lymph Denies lymphadenopathy Physical Exam Vital Signs: Last Vital Signs Pulse 54 11/27/23 11:10 BP 109/56 L 11/27/23 11:10 BMI result Body Mass Index 21.3 Const General: cooperative and no acute distress Nutritional Appearance: well nourished Orientation/consciousness: patient oriented x3 Limitations: no limitations HEENT Head: Yes normocephalic and Yes atraumatic Ears: hearing grossly normal bilaterally Chest Other: Left breast: No skin change, no nipple retraction, no nipple discharge, no palpable mass, no enlarged lymph nodes. Biopsy site in the upper outer quadrant with a small amount of ecchymosis. Right breast: No skin change, no nipple retraction, no nipple discharge, no palpable mass, no enlarged lymph nodes Resp Effort & Inspection: normal respiratory effort, no audible wheezes, no cough and no respiratory distress Cardio Jugular venous distension: no JVD GI Inspection: Yes normal to inspection Skin Other: Warm, dry, no rash Neuro General: patient oriented x3 Extrem General: Yes no clubbing, cyanosis or edema Assessment & Plan Assessment & Plan (1) Radial scar of left breast: Code(s): N64.89 - Other specified disorders of breast Category: Medical Plan 43-year-old female patient presenting with a recent mammogram which revealed a cluster of calcifications in the left breast at the upper outer quadrant felt to be suspicious for malignancy. She subsequently underwent stereotactic guided core biopsy 1 week ago which revealed benign breast tissue with radial scar. We discussed the theoretical risk of the radial scar containing a malignancy in the recommendation of performing a lumpectomy to assure complete removal. She expressed understanding and consents to a left breast lumpectomy with localizer. We also discussed her strong family history of cancer including breast cancer in her mother and ovarian cancer in her paternal grandmother. She wishes to proceed with genetic testing today. She will return in approximately 6 weeks to review the results. Coding Level of Care Code New Pt Level 4 (59721) Diagnoses Radial scar of left breast N64.89
[2023-11-27 11:10] VITALS: BP 109/56; PULSE 54; BMI 21.3
== END 2023-11-27 11:29 | disposition home or self-care (01) ==
PROVIDERS: PCP Internal Medicine; Visit Provider Surgery
DX: R92.1 Mammographic calcification found on diagnostic imaging of breast (principal); N64.89 Other specified disorders of breast
CPT/HCPCS: 99204

== ENCOUNTER → 2023-11-27 10:59 | Outpatient (BNVA) | payer OTHER, SELFPAY | PROVIDERS: PCP Internal Medicine; Visit Provider Surgery ==

== ENCOUNTER 2023-12-06 10:35 | Outpatient (REF) | payer OTHER, SELFPAY ==
--- NOTE | ~2023-12-06 | US_ITS ---
EXAMINATION: US RETROPERITONEAL COMPLETE (RENAL) CLINICAL INFORMATION: Stress incontinence. COMPARISON: None available. TECHNIQUE: Real-time imaging of the kidneys and bladder. Limited visualization due to bowel gas. FINDINGS: RIGHT KIDNEY: 11.2 x 4.4 x 5.2 cm (SAG x AP x TRV). Mild hydronephrosis versus extrarenal pelvis. No renal calculi. Renal cortical thickness is normal. LEFT KIDNEY: 11.5 x 5.5 x 5.0 cm (SAG x AP x TRV). Mild hydronephrosis versus extrarenal pelvis. No renal calculi. Renal cortical thickness is normal. BLADDER: Well-distended and unremarkable. Bilateral ureteral jets are demonstrated. Prevoid bladder volume is 682 mL. Postvoid bladder volume is 8.8 mL. US/US retroperitoneal comp IMPRESSION: Mild bilateral hydronephrosis versus extrarenal pelvis. No renal calculi.
== END 2023-12-06 10:36 | disposition home or self-care (01) ==
LOC: HO.US 10:35
PROVIDERS: PCP Internal Medicine; Visit Provider Urology
DX: N39.3 Stress incontinence (female) (male) (principal); R39.15 Urgency of urination
CPT/HCPCS: 76770

== ENCOUNTER 2023-12-19 07:56 | Outpatient (REF) | payer OTHER, SELFPAY ==
--- NOTE | ~2023-12-19 | MM_ITS ---
EXAMINATION: MM MAMMOGRAM GUIDED RFID LOCALIZATION BREAST, LEFT CLINICAL INFORMATION: Stereotactic biopsy left breast 1:00 axis, middle one third calcifications yielding microcalcifications with radial sclerosing lesion. COMPARISON: Stereotactic biopsy left breast 11/05/2023, diagnostic left mammography 11/02/2023, mammography 09/27/2023. TECHNIQUE NEEDLE LOC: Proper informed consent is obtained from the patient after discussion of the procedure, potential risks and complications, and alternatives including declining the procedure today. Patient was given an opportunity for questions. The patient appeared to understand. The patient consented to the procedure and signed the consent form. GUIDANCE: Digital mammography. APPROACH: Cranio-caudal. TARGET: Cylinder-shaped biopsy clip. ANESTHESIA: carbonated lidocaine 1%: 3 mL. LOCALIZATION SYSTEM: [employer] LOCallizer Wire-Free Guidance System with 12g needle applicator. RADIOFREQUENCY TAG: ID # [id number] DERMATOTOMY: Single 1 mm skin-naomi dermatotomy performed. RF Tag ID confirmed with LOCalizer Guidance System prior to placement. The skin is prepped and local anesthesia administered. The needle is positioned and RFID tag deployed. Final images demonstrate the LOCalizer RF tag to reside immediately abutting the cylinder-shaped biopsy clip and residual calcifications. The patient tolerated the procedure well and had no immediate complications. Dressing placed and home instructions reviewed. MM/MM RF Tag device LT IMPRESSION: -Status post left breast RFID localization. Final location of the RFID tag is ideal. -Final CC and ML images are appropriately labeled for OR reference.
[2023-12-19] MEDS: Lidocaine HCl 1 % MPF 5 ML VIAL 3 ML SUBCUT (08:46)
[2023-12-19] MEDS: Sodium Bicarbonate 8.4% 50 MEQ/50 ML VIAL SUBCUT (08:47)
== END 2023-12-19 07:57 | disposition home or self-care (01) ==
LOC: HO.MAMMO 07:56
PROVIDERS: PCP Internal Medicine; Visit Provider Surgery
DX: N64.89 Other specified disorders of breast (principal); Z80.3 Family history of malignant neoplasm of breast
CPT/HCPCS: 19281; C1819

== ENCOUNTER → 2023-12-19 08:00 | Outpatient (BNV) | payer OTHER, SELFPAY | PROVIDERS: PCP Internal Medicine; Visit Provider Radiology Diagnostic Radiology | DX: R92.1 Mammographic calcification found on diagnostic imaging of breast (principal) | CPT/HCPCS: 19281 ==

== ENCOUNTER 2023-12-26 06:00 | Day surgery (SDC) | payer OTHER, SELFPAY ==
[2023-12-24 09:14] VITALS: BMI 22.0
--- NOTE | 2023-12-24 14:15 | P.CONAN_ITS ---
Documented by User: Sloane Rothman NP 12/24/23 14:16 HPI - Anesthesia Eval Consult details Narrative: 43yo F for Left Breast Lumpectomy w/LOCalizer PMFSH Active Problems Active Problems: All Active Problems Radial scar of left breast (Acute) JOLENE (stress urinary incontinence, female) (Acute) Urinary urgency (Acute) Microalbuminuria (Acute) PAULA (generalized anxiety disorder) (Acute) MDD (major depressive disorder), recurrent episode (Acute) Migraine headache without aura (Acute) Urinary incontinence (Acute) Laboratory exam ordered as part of routine general medical examination (Acute) Cervical cancer screening (Acute) Family history of breast cancer in female (Acute) Well woman exam with routine gynecological exam (Acute) Annual physical exam (Acute) Past Medical History Medical History Hx: UTI (urinary tract infection) Asthma Depression Anxiety Migraines Annual physical exam Family History Family History Maternal Aunt H/O mastectomy Breast CA, Onset Age: 36 Father HTN (hypertension) Hypercholesteremia Brother Melanoma Paternal Grandmother Ovarian cancer Paternal Uncle FH: mental illness Substance use Paternal Aunt FH: mental illness Substance use Other Diabetes Surgical History Surgical History (Updated 12/26/23 @ 06:41 by Franca Prakash RN) H/O surgical removal of hymen H/O removal of cyst Hx of tonsillectomy Social History Social History Housing: House Are you a primary health care marketing specialist to a significant other at home: No Do you presently have visiting nurse or other home services: No Alcohol intake: never Patient Tobacco Use Status: Never used Tobacco e-Cigarette/Vaping Use: Never Used service: No Current occupational status: employed 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 Current occupational exposures/hazards: No Gender identity: Female Cognitive needs: No Hearing needs: No Vision needs: No Meds Allergies Allergy/AdvReac Type Severity Reaction Status Date / Time No Known Allergies Allergy Verified 12/26/23 06:17 [No Known Allergies*] Home Medications ?Medication ?Instructions ?Recorded ?Confirmed ?Last Taken ?Type cetirizine 10 mg capsule (Zyrtec) 10 mg PO DAILY PRN Allergy Symptoms 09/07/23 12/26/23 Unknown History melatonin 5 mg capsule 5 mg PO DAILY 09/07/23 12/26/23 12/25/23 History Exam Height,Weight and Vital Signs: Height 5 ft 4 in Weight 58.06 kg Pertinent Lab Results Pertinent Lab Results: Laboratory Tests 03/19/18 09/07/23 17:38 12:05 WBC 12.6 H Hgb 13.1 Hct 38.3 Plt Count 327 Sodium 141 Potassium 3.5 Chloride 105 Carbon Dioxide 27 BUN 8 L Creatinine 0.72 Assessment and Plan Assessment Anesthesia Assessment: Chart Reviewed Documented by User: Saima Boss MD 12/26/23 07:25 [facility] Past Medical History Medical History Hx: UTI (urinary tract infection) Asthma Depression Anxiety Migraines Annual physical exam Family History Family History Maternal Aunt H/O mastectomy Breast CA, Onset Age: 36 Father HTN (hypertension) Hypercholesteremia Brother Melanoma Paternal Grandmother Ovarian cancer Paternal Uncle FH: mental illness Substance use Paternal Aunt FH: mental illness Substance use Other Diabetes Family history of problems with anesthesia: No Surgical History Surgical History (Updated 12/26/23 @ 06:41 by Franca Prakash RN) H/O surgical removal of hymen H/O removal of cyst Hx of tonsillectomy History of Problems with Anesthesia: No Social History Social History Housing: House Are you a primary health care marketing specialist to a significant other at home: No Do you presently have visiting nurse or other home services: No Alcohol intake: never Patient Tobacco Use Status: Never used Tobacco e-Cigarette/Vaping Use: Never Used service: No Current occupational status: employed 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 Current occupational exposures/hazards: No Gender identity: Female Cognitive needs: No Hearing needs: No Vision needs: No Meds Allergies Allergy/AdvReac Type Severity Reaction Status Date / Time No Known Allergies Allergy Verified 12/26/23 06:17 [No Known Allergies*] Home Medications ?Medication ?Instructions ?Recorded ?Confirmed ?Last Taken ?Type cetirizine 10 mg capsule (Zyrtec) 10 mg PO DAILY PRN Allergy Symptoms 09/07/23 12/26/23 Unknown History melatonin 5 mg capsule 5 mg PO DAILY 09/07/23 12/26/23 12/25/23 History Exam Airway Mallampati Class: II (top front left tooth cap/ implant) TM Dist: >3cm Neck ROM: Full Heart: rrr Lungs: cta Assessment and Plan Assessment Anesthesia Assessment: Anesthesia Plan Discussed Final Anesthetic Review Family History of Problems with Anesthesia: No History of Problems with Anesthesia: No NPO: Yes ASA Class: II Final Preanesthetic Review: No Changes in Pt Med Stat, Meds/Allgs Chart Reviewed and Consent Obtained/Reviewed Patient Risk: Low Procedure Risk: Low Anesthetic Plan Anesthetic Plan: GA Disposition: Standard PACU
[2023-12-26] VITALS (7 sets, daily range): BP systolic 100–114; BP diastolic 65–77; PULSE 62–79; RESP 16; TEMP 36.6–36.8; O2SAT 99–100; BMI 21.5
--- NOTE | ~2023-12-26 | MM_ITS ---
EXAMINATION: MM SPECIMEN X-RAY BREAST, LEFT BREAST CLINICAL INDICATION: Excision of calcifications yielding radial sclerosing lesion left breast 1:00 axis, middle one third. COMPARISON: Localization left breast 12/19/2023. Stereotactic guided left breast biopsy 11/15/2023. TECHNIQUE: 6 radiographs of the excised breast tissue is performed using digital mammography. FINDINGS: The specimen radiographs demonstrate the RFID tag, the residual calcifications, and the biopsy clip contained within different tiny specimens taken. The specimens contain the index calcifications of concern. Results were called to Dr. Olman Slater in the operating room at the time of imaging. Electronically signed by: Luis Ahumada MD 12/26/2023 12:08 PM EDT
[2023-12-26 06:18] LABS: UPreg QC Valid YES; Urine Pregnancy NEGATIVE (NEGATIVE)
[2023-12-26] MEDS: Lactated Ringers 1,000 ML 100 ML IVCONT (06:56)
--- NOTE | 2023-12-26 07:23 | MHC.SHP ---
Pre-Procedural Eval Section A - 24 Hr Update-Section A only Date of Service: 12/26/23 The patient is an INPATIENT: No Changes since office visit: Yes Patient answered all questions; No Cold of Flu in the past 2 weeks, No New Medical Problems and No Changes in Medication The patient has been examined within 24 hours of the surgical procedure. The History & Physical has been completed within 30 days and I have reviewed it.: Yes Section B - Complete if H&P > 30 days Chief Complaint: Other specified disorders of breast Allergies: Allergies Allergy/AdvReac Type Severity Reaction Status Date / Time No Known Allergies Allergy Verified 12/26/23 06:17 [No Known Allergies*] Plan Diagnosis/Plan: Unchanged I have reviewed the history and physical and performed a pertinent physical examination on my patient. No changes have occurred unless specified. Time Spent With Patient Time: Total time managing care of this patient today ____ minutes.
--- NOTE | 2023-12-26 08:39 | W.PM.OPN ---
Operative Note Operative Note Date of Service: 12/26/23 Narrative: Preoperative diagnosis: Radial scar left breast Postoperative diagnosis:same Procedure:Right breast lumpectomy with localizer Surgeon: Olman Slater MD Process Laboratory Specialist: Aliyah Ross PA-C Anesthesia:General LMA Indications for procedure:43-year-old female patient presenting with a recent screening mammogram which revealed a cluster of calcifications in the left breast in the upper outer quadrant. This was felt to be suspicious for malignancy and stereotactic guided core biopsy performed. This revealed a radial scar. She presents today for wider excision to assure complete removal. Operative findings: Initial specimen contain the localizer clip however the barrel marking clip could not be identified. Additional specimen from the superior medial and superior lateral margins were obtained and imaged and did not contain the barrel clip. Finally the inferior border was reexcised and contained both microcalcifications and the barrel clip. All specimens were sent to pathology for further examination. Specimen: Left breast lumpectomy Estimated blood loss: 5 mL Complications: none Procedure details: patient was brought to the OR placed in a supine position. After administering general anesthesia the patient's left breast was prepped with ChloraPrep and draped in a sterile fashion. A surgical time-out was called the consent confirmed. Patient received preoperative antibiotics and Venodyne boots were in place. Local anesthesia was then infiltrated in a curvilinear fashion over the nipple-areolar complex. A curvilinear incision was then made from proximally the 11 o'clock to 2 o'clock position in the areolar margin. This was carried out through subcutaneous tissue using electrocautery. Superior and inferior skin flaps were then created with electrocautery. Using the localizer, the area of the clip was identified. the clip was identified and core was specimen surrounding this obtained using electrocautery and Metzenbaum scissors. The specimen was removed and imaged. The localizer clip was identified however the marking clip could not be identified. As noted above 3 additional specimens were obtained including the superior medial, superior lateral and inferior margin. Finally the inferior margin contain the barrel clip along with cluster of microcalcifications. All specimens were sent to pathology for further examination. Hemostasis was achieved using free ties of 3-0 Polysorb and electrocautery. The deep breast tissue was then reapproximated using interrupted 3-0 Polysorb sutures. Dermis was reapproximated using interrupted 3-0 Polysorb sutures. Skin was then closed using a running subcuticular 4-0 Polysorb suture. Steri-Strips, sterile gauze and Tegaderm were then applied. The patient tolerated the procedure well. Sponge, instrument, and needle counts were reported as correct. The patient was transferred to PACU in stable condition.
== END 2023-12-26 09:47 | disposition home or self-care (01) ==
PROVIDERS: Nurse Practitioner; PCP Nurse Practitioner Family; Visit Provider Surgery
PROC: (CPT 19301; principal; 2023-12-26 07:30)
DX: N64.89 Other specified disorders of breast (principal); N60.22 Fibroadenosis of left breast; N60.92 Unspecified benign mammary dysplasia of left breast; N60.82 Other benign mammary dysplasias of left breast; R92.0 Mammographic microcalcification found on diagnostic imaging of breast; J45.909 Unspecified asthma, uncomplicated; F32.A Depression, unspecified; F41.9 Anxiety disorder, unspecified; G43.909 Migraine, unspecified, not intractable, without status migrainosus; Z79.899 Other long term (current) drug therapy; Z98.890 Other specified postprocedural states
CPT/HCPCS: 19301; 81025; 88307; 88329; 88341; 88342; J0690; J2250; J2704; J2795; J3010

== ENCOUNTER → 2023-12-26 06:00 | Outpatient (BNV) | payer OTHER, SELFPAY | PROVIDERS: PCP Nurse Practitioner Family; Visit Provider Surgery | DX: N64.89 Other specified disorders of breast (principal) | CPT/HCPCS: 19301 ==

== ENCOUNTER 2023-12-31 13:42 | Outpatient (REF) | payer OTHER, SELFPAY ==
[2023-12-31 16:01] LABS: Appearance Urine Clear; Color Urine Yellow; Glucose Urine UA Negative (Negative); Leukocyte Esterase Urine Negative (Negative); Nitrite Urine Negative (Negative); PH 6.5 (5.0-9.0); Specific Gravity - Urine <= 1.005 (1.005-1.025); Urine Blood Negative (Negative); Urine Ketones Negative (Negative); Urine Protein Negative (Neg-Trace)
[2023-12-31 16:09] LABS: Bacteria Urine None Seen (None Seen); Hyaline Casts Urine 0-2 /LPF (0-2); RBC Urine 0-2 /HPF (0-2); Squamous Epithelial Cell Urine 0-2 /HPF (0-2); WBC Urine 0-5 /HPF (0-5)
== END 2023-12-31 13:43 | disposition home or self-care (01) ==
LOC: HO.LAB 13:42
PROVIDERS: PCP Nurse Practitioner Family; Visit Provider Urology
DX: R39.15 Urgency of urination (principal); N39.3 Stress incontinence (female) (male)
CPT/HCPCS: 81001; 87086

== ENCOUNTER 2024-01-04 09:53 | Outpatient (AMB) | payer OTHER, SELFPAY ==
--- NOTE | 2024-01-04 09:54 | MHC.OFFVIS ---
Intake Visit Reasons: urodynamics Intake Note: Patient is present for URODYNAMIC Urology Medication:NONE Antibiotic Allergy:NONE Blood Thinner:NONE Global Process Owner Required: No Allergies No Known Allergies [No Known Allergies*] Allergy (Verified 01/04/24 09:55) HPI Comments Details: 01/03/24--Here for UDS. CMG parameters detailed below. Interpretation: During the procedure the bladder was stable during the filling phase. Detrusor instability was not observed. Leakage was observed with cough and Valsalva. Appropriate EMG changes in the waveforms were noted through out the study. Findings consistent with intrinsic sphincter deficiency. 20 minutes spent in review of records pertaining to this visit and including cecb-sd-[id number] discussion with the patient and documentation of this visit. I have discussed treatment options to include urethral bulking and sling procedures. Risks and benefits discussed including but not limited to infection, bleeding, urinary retention, need to repeat or necessity to perform an alternative procedure. The patient is agreeable for urethral bulking procedure, Bulkamid. Review of chart: 10/29/23--43-year-old female here for evaluation urinary incontinence. Past medical history asthma, MDD, generalized anxiety disorder, migraines, 2 vaginal deliveries 05/2013 (about 7-1/2 lb), 04/2014 (approximately 9 lb). She complains of urinary leakage associated with activities running, sneezing coughing. She does note an urge component as well. Urinalysis: Leukocytes negative blood negative. Bladder scan PVR 0 mL. The patient has tried Kegel's, but has not seen a pelvic floor physical therapist as yet. Plan discussed will refer to pelvic floor physical therapy however there has been a long wait list in the surrounding area, we will check renal bladder ultrasound and I have discussed evaluation with urodynamics. [facility] Medical History Hx: UTI (urinary tract infection) Asthma Depression Anxiety Migraines Annual physical exam Surgical History H/O surgical removal of hymen H/O removal of cyst Hx of tonsillectomy Family History Maternal Aunt H/O mastectomy Breast CA, Onset Age: 36 Father HTN (hypertension) Hypercholesteremia Brother Melanoma Paternal Grandmother Ovarian cancer Paternal Uncle FH: mental illness Substance use Paternal Aunt FH: mental illness Substance use Other Diabetes Social History Housing: House Are you a primary adult daycare coordinator to a significant other at home: No Do you presently have visiting nurse or other home services: No Alcohol intake: never Patient Tobacco Use Status: Never used Tobacco e-Cigarette/Vaping Use: Never Used service: No Current occupational status: employed 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 Current occupational exposures/hazards: No Gender identity: Female Cognitive needs: No Hearing needs: No Vision needs: No Female Reproductive History Menstrual Age of Menarche: 12 Review of Systems Const All systems reviewed & are unremarkable except as noted in HPI and below Reports no additional complaints Eyes Reports no additional complaints ENT Reports no additional complaints Card Reports no additional complaints Resp Reports no additional complaints GI Reports no additional complaints Reports as per HPI Musc Reports no additional complaints Skin/Breast Reports system reviewed and no additional complaints, except as documented Neuro Reports no additional complaints Psych Reports no additional complaints Endo Reports no additional complaints Joseph/Lymph Reports no additional complaints Aller/Immun Reports no additional complaints Office Procedures Urodynamic Studies Consent Discussed risk and benefit or proposed procedure with the patient. Information consent for procedure given to the patient. Discussed technical aspects, risks, benefits and alternatives in full. Addressed all of the patient's questions and concerns regarding the procedure. The patient demonstrated knowledge and understanding. They wish to proceed with this procedure. Preparation The patient was prepped in the usual manner. A aadc plans staff officer was present and in the room. Genitalia was prepped with betadine solution in a sterile manner. Procedure Complex Uroflow Complex uroflow performed by: Allen Edward Maximum urinary flow rate (mL/second): 37 Voiding time (seconds): 74 Voided volume (mL): 496 Residual urine (mL): 30 Cystometrogram Vaginal/rectal catheter type: vagina; First sensation at (mL): 123 mL First desire at (mL): 190 mL Strong desire to void occured at (mL): 453 mL Strong desire detrussor pressure (cm H2O): 9.8 Maximum fill (mL): 480 mL Voided with max detrussor pressure of (cm H2O): 13 Max detrussor pressure with leak (cm H20): 34 Prep: The patient was prepped in the usual manner. A aadc plans staff officer was present and in the room. Genitalia was prepped with betadine solution in a sterile manner. 17533-Foabxxzxqfdvqh w/ COMMUNITY AFFAIRS DIRECTOR 84641-Cusolbn-Knxbczvhoyro First 01088-Zimp/Urinary Muscle Study 41715-Khzrm-Kcanysxrs Pressure Test Procedure code (CPT) selection complete Office Meds nitrofurantoin monohydrate/macrocrystals 100 mg capsule Performing Provider: Allen Edward MD [place] [facility] [facility] Administered by: Sukh Art LPN on 01/04/24 10:02 Dose Route Admin Location Dispensed Lot Number Expiration Date NDC Talent Buyer 100 mg PO 1 cap Assessment & Plan Assessment & Plan (1) Intrinsic sphincter deficiency (ISD): Code(s): N36.42 - Intrinsic sphincter deficiency (ISD) Category: Medical Plan Schedule Bulkamid urethral bulking injection Orders: Orders AMB Urodynamics Studies Today N39.3 - Stress incontinence (female) (male), R39.15 - Urgency of urination, R80.9 - Proteinuria, unspecified Patient Instructions: The patient had an opportunity to ask questions regarding treatment plan. The patient expressed understanding and agreement with the above treatment plan. The patient is aware they should contact our office by phone for worsening of their current condition or the appearance of new symptoms. Compliance is encouraged with any medications and followup testing that is ordered. It is a privilege to be allowed the opportunity to participate in the urologic care of your patient. If you have any questions or concerns regarding treatment for the above conditions please do not hesitate to contact me. The office telephone contact is [phone]. This note is constructed in part using voice recognition software. While every effort has been made to ensure accuracy tow motor operator errors may have been included. Yours sincerely, Allen Edward MD Coding Level of Care Code Est Pt Level 3 (16264) Diagnoses Intrinsic sphincter deficiency (ISD) N36.42 CPT Codes Urodynamic Studies - CPT: 15125-Lmgeazgiszjixb w/ COMMUNITY AFFAIRS DIRECTOR ([id number]) Urodynamic Studies - CPT: 20370-Blrajzi-Tihhqkdhcurx First ([id number]) Urodynamic Studies - CPT: 91615-Tmnm/Urinary Muscle Study ([id number]) Urodynamic Studies - CPT: 31586-Jtptm-Pulqhhlpb Pressure Test ([id number])
== END 2024-01-04 10:58 | disposition home or self-care (01) ==
LOC: HO.HUSH 09:53
PROVIDERS: PCP Nurse Practitioner Family; Visit Provider Urology
DX: N39.3 Stress incontinence (female) (male) (principal); R39.15 Urgency of urination; R80.9 Proteinuria, unspecified; N36.42 Intrinsic sphincter deficiency (ISD)
CPT/HCPCS: 51728; 51741; 51784; 51797; 99213

== ENCOUNTER → 2024-01-04 09:53 | Outpatient (BNVA) | payer OTHER, SELFPAY | PROVIDERS: PCP Nurse Practitioner Family; Visit Provider Urology | DX: N36.42 Intrinsic sphincter deficiency (ISD) (principal) | CPT/HCPCS: 51728; 51741; 51784; 51797 ==

== ENCOUNTER 2024-01-10 08:59 | Outpatient (AMB) | payer OTHER, SELFPAY ==
--- NOTE | 2024-01-10 09:08 | MHC.PC.OV ---
Vital Signs 01/10/24 09:10 Height 5 ft 6 in Weight 123 lb BMI 19.9 BP 118/70 Blood Pressure Location Rt brachial Position Sitting Respiration 14 Pulse 61 Pulse Source Pulse Oximeter Pulse Oximetry (%) 98 Oxygen Delivery Method Room Air Intake Visit Reasons: 6-8 weeks fu PAULA Intake Note: follow up Allergies No Known Allergies [No Known Allergies*] Allergy (Verified 01/10/24 09:40) Medication List - Last Reconciled 01/10/24 by PEGGY SonP- cetirizine (Zyrtec) 10 mg PO DAILY PRN melatonin 5 mg PO DAILY oxycodone 5 mg PO Q6H PRN sertraline 50 mg PO DAILY sumatriptan succinate (Imitrex) take 1 tab at onset of headache; if no relief may repeat 1 tab after at least 2 hrs; max = 4 tabs/24 hr PO Tobacco use date assessed: 09/07/23 Dental Screening Dental Screen Date: 09/07/23 HPI HPI Comments History of Present Illness Details 43-year-old female with asthma, MDD, generalized anxiety disorder, migraines, family history of breast cancer maternal aunt, paternal grandmother with ovarian cancer Status post removal of cyst from the right shoulder, tonsillectomy, hymenectomy procedure with Dr. 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 At the last office visit her sertraline was increased from 25 mg to 50 mg. She reports that she did not start the increase until about the week of November. Since this time she has been taking as directed. Taking at bedtime as she was feeling tired when taking during the day. Since the increase she reports that her fatigue has improved. Unfortunately her gpsfzc-jm-vla and brother in the last few weeks. Her brother unexpectedly. She reports that she is going through appropriate grieving. Reports that she is overall sad. Feels her overall anxiety symptoms are well controlled with the current medication and does not feel like she needs an increase. She continues to work on establishing care with a counselor. I have given her 2 recommendations today to try. She herself denies any SI or HI. She has not been clear to exercise status post lumpectomy, however she will be cleared going forward. Running has provided her stress relief in the past. She looks forward to getting back to this. She does have interrupted sleep. Waking every night around 02:00. Takes melatonin to help induce sleep. However reports that inducing sleep has not been the issue. It is more maintaining sleep. In regards to her other health conditions. She will be following up with the general surgeon today to get the left breast biopsy results as well as the results of the genetic testing that were done given her family history of cancer. Consult notes reviewed. She will be undergoing a procedure to help her urinary incontinence to be done by Urology. COnsult notes reviewed. Plan Empathy and support offered. Recommendations for counselors provided today. Continue sertraline 50 mg daily. Refill sent today. Discussed potentially trying melatonin extended release to help sleep maintenance. Reminded that disrupted sleep can be a sign of uncontrolled anxiety and depression and to be mindful of this going forward. Continue follow up with the general surgeon as well as Urology. Return to the office in 3-4 months to follow up on generalized anxiety, sooner should anything be needed. This note is constructed using voice recognition software. While every effort has been made to ensure accuracy in beauty culturist apprentice, still errors may have been included Sometimes, these errors may affect the content or meaning of the given sentence . Total time spent caring for the patient today was 44 minutes. This includes time spent before the visit reviewing the chart, time spent during the visit, and time spent after the visit on documentation [facility] Medical History (Updated 01/04/24 @ 11:11 by Allen Edward MD) Hx: UTI (urinary tract infection) Asthma Depression Anxiety Migraines Annual physical exam Surgical History (Updated 01/09/24 @ 11:02 by VANESSA Cuadra) History of lumpectomy of right breast (12/26/23) H/O surgical removal of hymen H/O removal of cyst Hx of tonsillectomy Family History Maternal Aunt H/O mastectomy Breast CA, Onset Age: 36 Father HTN (hypertension) Hypercholesteremia Brother Melanoma Paternal Grandmother Ovarian cancer Paternal Uncle FH: mental illness Substance use Paternal Aunt FH: mental illness Substance use Other Diabetes Social History Housing: House Are you a primary congregational care pastor to a significant other at home: No Do you presently have visiting nurse or other home services: No Alcohol intake: never Patient Tobacco Use Status: Never used Tobacco e-Cigarette/Vaping Use: Never Used service: No Current occupational status: employed 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 1. Little interest or pleasure in doing things: not at all 2. Feeling down, depressed, or hopeless: several days 3. Trouble falling or staying asleep, or sleeping too much: several days 4. Feeling tired or having little energy: several days 5. Poor appetite or overeating: not at all 6. Feeling bad about yourself - or that you are a failure or have let yourself or your family down: not at all 7. Trouble concentrating on things, such as reading the newspaper or watching television: several days 8. Moving or speaking so slowly that other people could have noticed. Or the opposite - being so fidgety or restless that you have been moving around a lot more than usual: not at all 9. Thoughts that you would be better off or of hurting yourself in some way: not at all Total score: 4 Depression Screening Interpretation: Negative Depression Screening Done: Yes 86990 - PHQ-9 Billing: Yes Source: Developed by Drs. Migue Moreno, Cari Bazan, Mukesh Fischer and colleagues, with an educational rj from [employer]. Thrive Questionnaire Date Thrive assessed: 09/07/23 PAULA-7 AMB Questionnaire PAULA-7 Date PAULA - 7 assessed: 01/10/24 Feeling nervous, anxious, or on edge: 1 = Several days Not being able to stop or control worryin = Several days Worrying too much about different things: 0 = Not at all Trouble relaxin = Several days Being so restless that it is hard to sit still: 0 = Not at all Becoming easily annoyed or irritable: 1 = Several days Feeling afraid as if something awful might happen: 0 = Not at all Total PAULA-7 score (0-4 normal; 5-9 mild; 10-14 moderate; 15-21 severe): 4 Source: Developed by Drs. Migue Moreno, Cari Bazan, Mukesh Fischer and colleagues, with an educational rj from [employer]. PAULA-7 Assessment Billing PAULA-7 Assessment Tool: PAULA-7 Assessment 61957 Physical exam (Primary Care) Vital Signs: Last Vital Signs Pulse 61 01/10/24 09:10 Resp 14 01/10/24 09:10 BP 118/70 01/10/24 09:10 Pulse Ox 98 01/10/24 09:10 Oxygen Delivery Method Room Air 01/10/24 09:10 BMI result Body Mass Index 19.9 Tobacco/Smoking Status: Tobacco use Status Tobacco use date assessed 09/07/23 01/10/24 09:12 Patient Tobacco Use Status Never used Tobacco 01/10/24 09:12 e-Cigarette/Vaping Use Never Used 01/10/24 09:12 PHQ-9: PHQ-9 Score PHQ-9: Total score 4 01/10/24 09:18 Depression Screening Interpretation: Negative Thrive Assessment: Date of Thrive Assessment Date Thrive assessed 09/07/23 01/10/24 09:12 Assessment and Plan Assessment & Plan (1) PAULA (generalized anxiety disorder): Comment: Was on Celexa during child bearing years and then was switched to sertraline. She has been without this since 2020. Will est care w/ counselor on her own Code(s): F41.1 - Generalized anxiety disorder (2) MDD (major depressive disorder), recurrent episode: Comment: See PAULA care plan Code(s): F33.9 - Major depressive disorder, recurrent, unspecified Qualifiers: Major depression episode severity: mild Qualified Code(s): F33.0 - Major depressive disorder, recurrent, mild (3) Urinary incontinence: Code(s): R32 - Unspecified urinary incontinence Qualifiers: Urinary Incontinence type: stress incontinence Qualified Code(s): N39.3 - Stress incontinence (female) (male) (4) Grief: Code(s): F43.21 - Adjustment disorder with depressed mood Medications: Refilled sertraline 50 mg PO DAILY 30 tabs 1RF Patient Instructions: Crisis Hotlines Suicide prevention, domestic violence, and other crisis hotlines for youth, young adults, and their friends and families. [facility] Safeline helps youth who have run away, are thinking about running away, or who already ran away but are ready to come home. Parents and guardians can also contact the hotline if they are worried about their child running away or if their child has already left home. The hotline is available 24 hours a day, seven days a week. Youth, parents, and guardians can also use the online chat feature on the [facility]'s website to ask for help and get support, or [place] [address]. [facility] National Suicide Prevention Lifeline: The [place] Suicide Prevention Lifeline is a network of local crisis centers that are available 27/11 to provide support for youth and adults who are in any kind of emotional crisis. In addition to the main hotline number listed above, there are several other numbers to call depending on your needs: [place] Citizen Language: Deaf and Hard of Hearin1-687.796.6706 Veterans: Disaster Distress: Anyone can also use their online chat feature on their website. [place] Suicide Prevention Lifeline [facility] Helpline: The [facility] Helpline is available to anyone in [place] who is need of emotional support. Anyone can call or text the helpline to receive help from specially trained volunteers. [place] high school and college students can also get online support through the IMHear_ program. For high school students, volunteers ages 15-18 are available Sunday- from 6-9PM. For college students, IMHear_ is available Sunday-Sunday from 5-9PM. The Charlie Project - The Charlie Project is a 24/7 crisis intervention and suicide prevention hotline for LGBTQ youth. Youth can also text Charlie to for support, or use the online chat feature on the Charlie Project's website. TrevorText is available Sunday-Sunday between 3-10PM. TrevorChat is available seven days a week between 3-10PM. SafeLink: SafeLink is for anyone who is being affected by domestic violence or dating violence. Volunteers at [employer] speak Citizen Of [place] and [place] Citizen, and [employer] also has a service that can provide translation in more than 130 languages. TTY: Coding Level of Care Code Est Pt Level 5 (70657) Diagnoses PAULA (generalized anxiety disorder) F41.1 Mild episode of recurrent major depressive disorder F33.0 Major depression episode severity: mild Stress incontinence of urine N39.3 Urinary Incontinence type: stress incontinence Grief F43.21 Additional Codes PAULA-7 Assessment Billing - PAULA-7 Assessment Tool: PAULA-7 Assessment [id number] ([id number])
[2024-01-10 09:10] VITALS: BP 118/70; PULSE 61; RESP 14; O2SAT 98; BMI 19.9
== END 2024-01-10 09:48 | disposition home or self-care (01) ==
PROVIDERS: PCP Nurse Practitioner Family; Visit Provider Nurse Practitioner Family
DX: F41.1 Generalized anxiety disorder (principal); F33.0 Major depressive disorder, recurrent, mild; N39.3 Stress incontinence (female) (male); F43.21 Adjustment disorder with depressed mood
CPT/HCPCS: 96127; 99215

== ENCOUNTER 2024-01-10 15:10 | Outpatient (AMB) | payer OTHER, SELFPAY ==
--- NOTE | 2024-01-10 15:16 | A.OFFVIS_ITS ---
Vital Signs 01/10/24 15:18 Height 5 ft 6 in Weight 121 lb 4.068 oz BMI 19.6 BP 110/70 Blood Pressure Location Lt brachial Position Sitting Intake Visit Reasons: s/p (L) Breast lump Intake Note: Patient is seen in office for post op assessment post post left breast lumpecotmy. Pt c/o: no concerns surgery: 12/26/23 Manager Star Required: No Accompanied by: Self / Same As Patient Allergies No Known Allergies [No Known Allergies*] Allergy (Verified 01/10/24 15:19) Medication List - Last Reconciled 01/11/24 by Olman Slater MD cetirizine (Zyrtec) 10 mg PO DAILY PRN melatonin 5 mg PO DAILY oxycodone 5 mg PO Q6H PRN sertraline 50 mg PO DAILY sumatriptan succinate (Imitrex) take 1 tab at onset of headache; if no relief may repeat 1 tab after at least 2 hrs; max = 4 tabs/24 hr PO HPI Comments Details: 43-year-old female patient found to have a cluster of microcalcifications in the left breast and subsequently underwent stereotactic guided core biopsy at the [facility] on 11/15/2023. Pathology revealed fibrocystic change with columnar cell change, sclerosing adenosis with microcalcifications and radial sclerosing lesion/radial scar, no evidence of malignancy. Because of the radial scar a wider excision was recommended and she subsequently underwent left breast lumpectomy with localizer on 12/26/2023. Pathology did reveal a single focus of ductal atypia with calcifications and thermal crush artifact, compatible with atypical ductal hyperplasia and focal flat epithelial atypia. The findings were reviewed in detail with the patient and a copy of the report provided. She denies a previous history of breast problems and her family history is significant for a maternal aunt with breast cancer in a paternal grandmother with ovarian cancer. Her brother was treated for melanoma. She underwent genetic testing on 11/27/2023. This revealed no clinically significant mutations. No variance of uncertain significance were identified. Her breast cancer risk score was calculated at 32.3% placing her at high risk for breast cancer. She is . [facility] Medical History Hx: UTI (urinary tract infection) Asthma Depression Anxiety Migraines Annual physical exam Surgical History History of lumpectomy of right breast (12/26/23) H/O surgical removal of hymen H/O removal of cyst Hx of tonsillectomy Family History Maternal Aunt H/O mastectomy Breast CA, Onset Age: 36 Father HTN (hypertension) Hypercholesteremia Brother Melanoma Paternal Grandmother Ovarian cancer Paternal Uncle FH: mental illness Substance use Paternal Aunt FH: mental illness Substance use Other Diabetes Social History Housing: House Are you a primary resident care associate to a significant other at home: No Do you presently have visiting nurse or other home services: No Alcohol intake: never Patient Tobacco Use Status: Never used Tobacco e-Cigarette/Vaping Use: Never Used service: No Current occupational status: employed 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 Current occupational exposures/hazards: No Gender identity: Female Cognitive needs: No Hearing needs: No Vision needs: No Female Reproductive History Menstrual Age of Menarche: 12 Review of Systems Const All systems reviewed & are unremarkable except as noted in HPI and below Physical Exam Vital Signs: Last Vital Signs BP 110/70 01/10/24 15:18 BMI result Body Mass Index 19.6 Const General: no acute distress Nutritional Appearance: well nourished Orientation/consciousness: patient oriented x3 Chest Other: Exam deferred Resp Effort & Inspection: normal respiratory effort, no audible wheezes, no cough and no respiratory distress GI Inspection: Yes normal to inspection Neuro General: patient oriented x3 Extrem General: Yes normal to inspection Assessment & Plan Assessment & Plan (1) Atypical ductal hyperplasia of left breast: Code(s): N60.92 - Unspecified benign mammary dysplasia of left breast Category: Medical (2) Family history of breast cancer in female: Code(s): Z80.3 - Family history of malignant neoplasm of breast Category: Medical (3) Increased risk of breast cancer: Code(s): Z91.89 - Other specified personal risk factors, not elsewhere classified Category: Medical Plan 43-year-old female patient recently diagnosed with atypical ductal hyperplasia of the left breast following a recent lumpectomy for radial scar. Pathology results were reviewed the patient as were the genetic testing results. I recommended evaluation by Medical Oncology for risk reduction strategies. I will place her on a high risk protocol including yearly breast MRI alternating every 6 months with yearly mammogram and twice yearly clinical breast examination. She expressed understanding and agrees with the plan. Orders: Orders MR devine BI wo/w con 01/10/24 N60.92 - Unspecified benign mammary dysplasia of left breast, Z80.3 - Family history of malignant neoplasm of breast, Z91.89 - Other specified personal risk factors, not elsewhere classified Referrals Hematology & Oncology Referral N60.92 - Unspecified benign mammary dysplasia of left breast Coding Level of Care Code Global (70318) Diagnoses Atypical ductal hyperplasia of left breast N60.92 Family history of breast cancer in female Z80.3 Increased risk of breast cancer Z91.89
[2024-01-10 15:18] VITALS: BP 110/70; BMI 19.6
== END 2024-01-10 15:25 | disposition home or self-care (01) ==
PROVIDERS: PCP Nurse Practitioner Family; Visit Provider Surgery
DX: N60.92 Unspecified benign mammary dysplasia of left breast (principal); Z80.3 Family history of malignant neoplasm of breast; Z91.89 Other specified personal risk factors, not elsewhere classified
CPT/HCPCS: 99024

== ENCOUNTER → 2024-01-10 15:10 | Outpatient (BNVA) | payer OTHER, SELFPAY | PROVIDERS: PCP Nurse Practitioner Family; Visit Provider Surgery ==

== ENCOUNTER 2024-02-05 06:00 | Day surgery (SDC) | payer OTHER, SELFPAY ==
[2024-02-01 13:02] VITALS: BMI 19.9
--- NOTE | 2024-02-04 10:23 | HO.ANESPROP2 ---
Documented by User: Sloane Rothman NP 02/04/24 10:24 HPI - Anesthesia Eval Consult details Narrative: 43yo F for Cystoscopy with Bulkamid s/p lumpectomy 12/2023 with GA-LMA 3 PMFSH Active Problems Active Problems: All Active Problems Increased risk of breast cancer (Acute) Atypical ductal hyperplasia of left breast (Acute) Intrinsic sphincter deficiency (ISD) (Acute) Radial scar of left breast (Acute) JOLENE (stress urinary incontinence, female) (Acute) Urinary urgency (Acute) Microalbuminuria (Acute) PAULA (generalized anxiety disorder) (Acute) MDD (major depressive disorder), recurrent episode (Acute) Migraine headache without aura (Acute) Urinary incontinence (Acute) Laboratory exam ordered as part of routine general medical examination (Acute) Cervical cancer screening (Acute) Family history of breast cancer in female (Acute) Well woman exam with routine gynecological exam (Acute) Annual physical exam (Acute) Past Medical History Medical History Hx: UTI (urinary tract infection) Asthma Depression Anxiety Migraines Annual physical exam Family History Family History Maternal Aunt H/O mastectomy Breast CA, Onset Age: 36 Father HTN (hypertension) Hypercholesteremia Brother Melanoma Paternal Grandmother Ovarian cancer Paternal Uncle FH: mental illness Substance use Paternal Aunt FH: mental illness Substance use Other Diabetes Family history of problems with anesthesia: No Surgical History Surgical History History of lumpectomy of right breast (12/26/23) H/O surgical removal of hymen H/O removal of cyst Hx of tonsillectomy History of Problems with Anesthesia: No Social History Social History Housing: House Are you a primary post anesthesia care unit nurse to a significant other at home: No Do you presently have visiting nurse or other home services: No Alcohol intake: never Patient Tobacco Use Status: Never used Tobacco e-Cigarette/Vaping Use: Never Used Second Hand Smoke Exposure: No Use of substances other than those prescribed or required for medical reasons: No Have you been hit, kicked, punched, or otherwise hurt by someone within the past year? 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 Current occupational exposures/hazards: No Gender identity: Female Cognitive needs: No Hearing needs: No Vision needs: No Meds Allergies Allergy/AdvReac Type Severity Reaction Status Date / Time No Known Allergies Allergy Verified 01/10/24 15:19 [No Known Allergies*] Home Medications ?Medication ?Instructions ?Recorded ?Confirmed ?Last Taken ?Type cetirizine 10 mg capsule (Zyrtec) 10 mg PO DAILY PRN Allergy Symptoms 09/07/23 01/11/24 Unknown History melatonin 5 mg capsule 5 mg PO DAILY 09/07/23 01/11/24 12/25/23 History Exam Height,Weight and Vital Signs: Height 5 ft 6 in Weight 55.792 kg Assessment and Plan Assessment Anesthesia Assessment: Chart Reviewed Final Anesthetic Review Family History of Problems with Anesthesia: No History of Problems with Anesthesia: No Documented by User: Dalton Up MD 02/05/24 07:26 [facility] Past Medical History Medical History Hx: UTI (urinary tract infection) Asthma Depression Anxiety Migraines Annual physical exam Family History Family History Maternal Aunt H/O mastectomy Breast CA, Onset Age: 36 Father HTN (hypertension) Hypercholesteremia Brother Melanoma Paternal Grandmother Ovarian cancer Paternal Uncle FH: mental illness Substance use Paternal Aunt FH: mental illness Substance use Other Diabetes Surgical History Surgical History History of lumpectomy of right breast (12/26/23) H/O surgical removal of hymen H/O removal of cyst Hx of tonsillectomy Social History Social History Housing: House Are you a primary post anesthesia care unit nurse to a significant other at home: No Do you presently have visiting nurse or other home services: No Alcohol intake: never Patient Tobacco Use Status: Never used Tobacco e-Cigarette/Vaping Use: Never Used Second Hand Smoke Exposure: No Use of substances other than those prescribed or required for medical reasons: No Have you been hit, kicked, punched, or otherwise hurt by someone within the past year? 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 Current occupational exposures/hazards: No Gender identity: Female Cognitive needs: No Hearing needs: No Vision needs: No Meds Allergies Allergy/AdvReac Type Severity Reaction Status Date / Time No Known Allergies Allergy Verified 01/10/24 15:19 [No Known Allergies*] Home Medications ?Medication ?Instructions ?Recorded ?Confirmed ?Last Taken ?Type cetirizine 10 mg capsule (Zyrtec) 10 mg PO DAILY PRN Allergy Symptoms 09/07/23 01/11/24 Unknown History melatonin 5 mg capsule 5 mg PO DAILY 09/07/23 01/11/24 12/25/23 History Exam Airway Mallampati Class: I TM Dist: >3cm Neck ROM: Full Loose/Missing/Broken Teeth: No Heart: ok Lungs: ok Assessment and Plan Assessment Anesthesia Assessment: Anesthesia Plan Discussed Final Anesthetic Review NPO: Yes ASA Class: II Final Preanesthetic Review: No Changes in Pt Med Stat, Meds/Allgs Chart Reviewed, Consent Obtained/Reviewed and Anes Risks/Benef Reviewed Patient Risk: Low Procedure Risk: Low Anesthetic Plan Anesthetic Plan: GA and Agree w/ Assess. and Plan Disposition: Standard PACU
[2024-02-05 06:28] LABS: UPreg QC Valid YES; Urine Pregnancy NEGATIVE (NEGATIVE)
[2024-02-05 06:38] VITALS: BP 97/58; PULSE 63; RESP 16; TEMP 37.2; O2SAT 98
[2024-02-05] MEDS: Lactated Ringers 1,000 ML 100 ML IVCONT (06:40)
--- NOTE | 2024-02-05 07:21 | MHC.SHP ---
Pre-Procedural Eval Section A - 24 Hr Update-Section A only Date of Service: 02/05/24 The patient is an INPATIENT: No The patient has been examined within 24 hours of the surgical procedure. The History & Physical has been completed within 30 days and I have reviewed it.: Yes Section B - Complete if H&P > 30 days Chief Complaint: Intrinsic sphincter deficiency (ISD) Allergies: Allergies Allergy/AdvReac Type Severity Reaction Status Date / Time No Known Allergies Allergy Verified 01/10/24 15:19 [No Known Allergies*] Plan Diagnosis/Plan: Unchanged I have reviewed the history and physical and performed a pertinent physical examination on my patient. No changes have occurred unless specified. Cystoscopy, Bulkamid urethral bulking. I have discussed the risks of bulking injection to the proximal urethra and bladder neck to include but not limited to urine retention requiring a paige catheter, need to repeat the procedure, hematuria, and urgency. Time Spent With Patient Time: Total time managing care of this patient today ____ minutes.
--- NOTE | 2024-02-05 08:18 | P.OP_ITS ---
Operative Note Operative Note Date of Service: 02/05/24 Narrative: Preop diagnosis: Intrinsic sphincter deficiency Postop diagnosis: Intrinsic sphincter deficiency Procedure: Cystoscopy urethral bulking with bulkamid system Surgeon: Dr. Allen Edward Details of procedure: The patient was brought into the operating room placed on the OR table in supine position IV sedation was administered. Antibiotics confirmed. The patient was placed in lithotomy position prepped and draped in the usual sterile fashion. Safety time-out was done. A 14 Estonian straight catheter was used to drain bladder and send urine for culture. 2% lidocaine jelly was i nserted transurethrally 10 mL. Using the 0 degree 11 cm cystoscope with the light cord in the 6 o'clock position, the bladder was filled with sterile water to 150 mL the bladder and trigone were visualized, no suspicious bladder lesions. With the sheath at the 5 o'clock position the needle was inserted to the 1 cm cecily and 0.5 mL of gel was injected there was good bulking noted. This was repeated on the 7 o'clock position. The 2nd needle was inserted into the sheath and an injection was done at the 2 o'clock position and again at the 11 o'clock position. There was bulking of the mucosa noted with good coaptation. The patient tolerated the procedure and was taken to recovery in stable condition. Complication: none Drains: none
[2024-02-05 08:19] VITALS: BP 111/58; PULSE 62; RESP 16; TEMP 36.2; O2SAT 99
[2024-02-05 08:24] VITALS: BP 103/54; PULSE 53; RESP 16; O2SAT 100
[2024-02-05 08:29] VITALS: BP 109/61; PULSE 53; RESP 16; O2SAT 100
[2024-02-05] MEDS: Phenazopyridine HCL 200 MG TABLET PO (08:29)
[2024-02-05] MEDS: Acetaminophen 325 MG TABLET 650 MG PO (08:29)
[2024-02-05 08:34] VITALS: BP 108/60; PULSE 51; RESP 16; O2SAT 100
[2024-02-05 08:49] VITALS: BP 114/60; PULSE 57; RESP 16; TEMP 36.2; O2SAT 100
== END 2024-02-05 09:19 | disposition home or self-care (01) ==
PROVIDERS: Nurse Practitioner; PCP Nurse Practitioner Family; Visit Provider Urology
PROC: (CPT 51715; principal; 2024-02-05 07:30)
DX: N36.42 Intrinsic sphincter deficiency (ISD) (principal); N39.3 Stress incontinence (female) (male); R39.15 Urgency of urination; R80.9 Proteinuria, unspecified; Z87.440 Personal history of urinary (tract) infections; J45.909 Unspecified asthma, uncomplicated; F41.9 Anxiety disorder, unspecified; G43.909 Migraine, unspecified, not intractable, without status migrainosus; Z98.890 Other specified postprocedural states
CPT/HCPCS: 51715; 51702; 81025; 87086; J0690; J2704; J3010; L8606

== ENCOUNTER → 2024-02-05 06:00 | Outpatient (BNV) | payer OTHER, SELFPAY | PROVIDERS: PCP Nurse Practitioner Family; Visit Provider Urology | DX: N36.42 Intrinsic sphincter deficiency (ISD) (principal) | CPT/HCPCS: 51715 ==

== ENCOUNTER → 2024-02-07 08:59 | Outpatient (BNVA) | payer OTHER, SELFPAY | PROVIDERS: PCP Nurse Practitioner Family; Visit Provider Urology | DX: N39.3 Stress incontinence (female) (male) (principal); R39.15 Urgency of urination | CPT/HCPCS: 51798 ==

== ENCOUNTER → 2024-02-11 09:00 | Outpatient (BNV) | payer OTHER, SELFPAY | PROVIDERS: PCP Nurse Practitioner Family; Referring Provider Surgery; Visit Provider Internal Medicine Medical Oncology | DX: N60.92 Unspecified benign mammary dysplasia of left breast (principal) | CPT/HCPCS: 99204; 99213 ==

== ENCOUNTER 2024-02-14 12:57 | Outpatient (REF) | payer OTHER, SELFPAY ==
--- NOTE | ~2024-02-14 | US_ITS ---
EXAMINATION: US DIAGNOSTIC ULTRASOUND BREAST, LEFT CLINICAL INFORMATION: Evaluate oval T2 hyperintense, T1 hypointense enhancing 7 mm mass with washout kinetics left breast upper outer quadrant approximately 1:00 seen on recent MRI performed at [place], 01/30/2024. COMPARISON: Breast MRI 01/30/2024. Mammography 09/27/2023. TECHNIQUE: Ultrasound of the breast is performed with real-time pappas scale imaging and color Doppler. FINDINGS: At the 1:00 axis left breast upper outer quadrant, there is a benign-appearing intramammary lymph node measuring 8 x 3 x 6 mm with normal fatty hilum, and 2 mm cortex. This correlates very well with the finding on MRI, as well as the appearance on prior mammogram 09/27/2023. No suspicious abnormalities are noted. US/US breast LT limited mamm only IMPRESSION: -No findings suspicious for malignancy. -Finding on MRI corresponds with an 8 mm benign left axillary tail lymph node on both mammography and sonography. No further follow-up recommended. -Recommend the patient return to routine screening mammography in September 2024. ASSESSMENT: BI-RADS BI-RADS 2 RECOMMENDATION: Routine annual mammography screening. This patient's information was entered into a reminder system with a target due date for their next mammogram. Electronically signed by: Luis Ahumada MD 02/14/2024 01:40 PM EDT
== END 2024-02-14 12:58 | disposition home or self-care (01) ==
LOC: HO.MAMMO 12:57
PROVIDERS: PCP Internal Medicine; Visit Provider Surgery
DX: R92.8 Other abnormal and inconclusive findings on diagnostic imaging of breast (principal); Z91.89 Other specified personal risk factors, not elsewhere classified; N60.92 Unspecified benign mammary dysplasia of left breast
CPT/HCPCS: 76642

== ENCOUNTER → 2024-02-14 13:00 | Outpatient (BNV) | payer OTHER, SELFPAY | PROVIDERS: PCP Internal Medicine; Visit Provider Radiology Diagnostic Radiology | DX: N63.32 Unspecified lump in axillary tail of the left breast (principal) | CPT/HCPCS: 76642 ==

== ENCOUNTER 2024-05-05 08:25 | Outpatient (AMB) | payer OTHER, SELFPAY ==
--- NOTE | 2024-05-05 08:28 | A.OFFPC_ITS ---
Vital Signs 05/05/24 08:31 Height 5 ft 6 in Weight 130 lb 8 oz BMI 21.1 BP 113/66 Blood Pressure Location Rt brachial Position Sitting Respiration 12 Pulse 62 Pulse Source Pulse Oximeter Pulse Oximetry (%) 98 Oxygen Delivery Method Room Air Intake Visit Reasons: 3 months 30 min PAULA fu Intake Note: 3 month follow up Health Science Specialist Required: No Allergies No Known Allergies [No Known Allergies*] Allergy (Verified 05/05/24 08:41) Medication List - Last Reconciled 05/05/24 by Jessica Perry, [employer] cetirizine (Zyrtec) 10 mg PO DAILY PRN melatonin 5 mg PO DAILY sertraline 50 mg PO DAILY sumatriptan succinate (Imitrex) take 1 tab at onset of headache; if no relief may repeat 1 tab after at least 2 hrs; max = 4 tabs/24 hr PO tamoxifen 20 mg PO DAILY Tobacco use date assessed: 09/07/23 Dental Screening Dental Screen Date: 09/07/23 HPI HPI Comments History of Present Illness Details 43-year-old female with asthma, MDD, gen eralized anxiety disorder, migraines, family history of breast cancer maternal aunt, paternal grandmother with ovarian cancer, atypical ductal hyperplasia L breast (tamoxifen start 03/2024) Status post removal of cyst from the right shoulder, tonsillectomy, hymenectomy procedure with Dr. 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 Feels healthy grieving w/ loss of brother. Working on est care w/ counselor Denies SI/HI Got a dog; exercising Sleeping well w/o melatonin Reviewed atypical ductal hyperplasia and plan. Managing well. Wonders about drug interactions SSRI + tomaxifen. Had flu shot @ work Had procedure for urinary incont with + effects Exam Awake alert oriented NAD RRR LS CTAB Mood and affect appropriate Plan: Increase sertraline to 75mg QD Cont to find counselor FU with breast specialist Separate sertraline and tamoxifen and SSRI can ^ tamoxifen and decrease effectiveness RTO 6 weeks phone or in person to f/u on dose increase, sooner PRN Total time spent caring for the patient today was 30 minutes. This includes time spent before the visit reviewing the chart, time spent during the visit, and time spent after the visit on documentation PFSH Medical History Hx: UTI (urinary tract infection) Asthma Depression Anxiety Migraines Annual physical exam Surgical History History of lumpectomy of right breast (12/26/23) H/O surgical removal of hymen H/O removal of cyst Hx of tonsillectomy Family History Maternal Aunt H/O mastectomy Breast CA, Onset Age: 36 Father HTN (hypertension) Hypercholesteremia Brother Melanoma Paternal Grandmother Ovarian cancer Paternal Uncle FH: mental illness Substance use Paternal Aunt FH: mental illness Substance use Other Diabetes Social History Household Members: Spouse and Family Housing: House Are you a primary acute care registered nurse to a significant other at home: No Do you presently have visiting nurse or other home services: No Alcohol intake: never Patient Tobacco Use Status: Never used Tobacco e-Cigarette/Vaping Use: Never Used Second Hand Smoke Exposure: No service: No Current occupational status: employed 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 1. Little interest or pleasure in doing things: not at all 2. Feeling down, depressed, or hopeless: not at all 3. Trouble falling or staying asleep, or sleeping too much: not at all 4. Feeling tired or having little energy: several days 5. Poor appetite or overeating: not at all 6. Feeling bad about yourself - or that you are a failure or have let yourself or your family down: not at all 7. Trouble concentrating on things, such as reading the newspaper or watching television: not at all 8. Moving or speaking so slowly that other people could have noticed. Or the opposite - being so fidgety or restless that you have been moving around a lot more than usual: not at all 9. Thoughts that you would be better off or of hurting yourself in some way: not at all Total score: 1 48248 - PHQ-9 Billing: Yes Source: Developed by Drs. Migue Moreno, Cari Bazan, Mukesh Fischer and colleagues, with an educational rj from [employer]. Thrive Questionnaire Date Thrive assessed: 05/05/24 I am a: Patient What is your living situation today?: I have a steady place to live Within the past 12 months, did the food you bought not last and you didn't have the money to get more?: Never true Within the past 12 months, did you worry whether your food would run out before you got money to buy more?: Never true Do you have trouble paying for medicines?: No Do you have trouble getting transportation to medical appointments?: No Do you have trouble paying your heating and electricity bill?: No Do you have trouble taking care of your child, family member or friend?: No Do you have trouble with day-to-day activities such as bathing, preparing meals, shopping, managing finances, etc.?: No Are you currently unemployed and looking for a job?: No Are you interested in more education?: No Please select the resources that you would like help with: None Currently or been in a relationship where the following occur: No concerns reported THRIVE Score: 0 AUDIT C Alcohol Use Questionnaire (AUDIT-C) 1. How often do you have a drink containing alcohol?: Monthly or less 2. How many drinks containing alcohol do you have on a typical day when you are drinking?: 1 or 2 3. How often do you have six or more drinks on one occasion?: Never Total Score: 1 PAULA-7 AMB Questionnaire PAULA-7 Date PAULA - 7 assessed: 05/05/24 Feeling nervous, anxious, or on edge: 1 = Several days Not being able to stop or control worryin = Not at all Worrying too much about different things: 1 = Several days Trouble relaxin = Not at all Being so restless that it is hard to sit still: 0 = Not at all Becoming easily annoyed or irritable: 1 = Several days Feeling afraid as if something awful might happen: 0 = Not at all Total PAULA-7 score (0-4 normal; 5-9 mild; 10-14 moderate; 15-21 severe): 3 Source: Developed by Drs. Migue Moreno, Cari Bazan, Mukesh Fischer and colleagues, with an educational rj from [employer]. PAULA-7 Assessment Billing PAULA-7 Assessment Tool: PAULA-7 Assessment 85585 Physical exam (Primary Care) Vital Signs: Last Vital Signs Pulse 62 05/05/24 08:31 Resp 12 05/05/24 08:31 BP 113/66 05/05/24 08:31 Pulse Ox 98 05/05/24 08:31 Oxygen Delivery Method Room Air 05/05/24 08:31 BMI result Body Mass Index 21.1 Tobacco/Smoking Status: Tobacco use Status Tobacco use date assessed 09/07/23 05/05/24 08:30 Patient Tobacco Use Status Never used Tobacco 05/05/24 08:30 e-Cigarette/Vaping Use Never Used 05/05/24 08:30 PHQ-9: PHQ-9 Score PHQ-9: Total score 1 05/05/24 08:30 Thrive Assessment: Date of Thrive Assessment Date Thrive assessed 05/05/24 05/05/24 08:30 Currently or been in a relationship where the following occur: No concerns reported Coding Level of Care Code Est Pt Level 4 (82447) Complex EM visit Add On G2211 Diagnoses PAULA (generalized anxiety disorder) F41.1 Mild episode of recurrent major depressive disorder F33.0 Major depression episode severity: mild Atypical ductal hyperplasia of left breast N60.92 Increased risk of breast cancer Z91.89 JOLENE (stress urinary incontinence, female) N39.3 Additional Codes PAULA-7 Assessment Billing - PAULA-7 Assessment Tool: PAULA-7 Assessment 52250 ([id number]) PHQ-9 - 63246 - PHQ-9 Billing: Yes ([id number]) Assessment & Plan Assessment & Plan (1) PAULA (generalized anxiety disorder): Comment: Was on Celexa during child bearing years and then was switched to sertraline. Code(s): F41.1 - Generalized anxiety disorder Category: Medical (2) MDD (major depressive disorder), recurrent episode: Comment: See PAULA care plan Code(s): F33.9 - Major depressive disorder, recurrent, unspecified Category: Medical Qualifiers: Major depression episode severity: mild Qualified Code(s): F33.0 - Major depressive disorder, recurrent, mild (3) Atypical ductal hyperplasia of left breast: Code(s): N60.92 - Unspecified benign mammary dysplasia of left breast Category: Medical (4) Increased risk of breast cancer: Code(s): Z91.89 - Other specified personal risk factors, not elsewhere classified Category: Medical (5) JOLENE (stress urinary incontinence, female): Code(s): N39.3 - Stress incontinence (female) (male) Category: Medical Plan . Medications: Changed From sertraline 50 mg PO DAILY 30 tabs 1RF To sertraline 75 mg (1.5 x 50 mg) PO DAILY 45 tabs 1RF
[2024-05-05 08:31] VITALS: BP 113/66; PULSE 62; RESP 12; O2SAT 98; BMI 21.1
== END 2024-05-05 08:59 | disposition home or self-care (01) ==
PROVIDERS: PCP Nurse Practitioner Family; Visit Provider Nurse Practitioner Family
DX: F41.1 Generalized anxiety disorder (principal); F33.0 Major depressive disorder, recurrent, mild; N60.92 Unspecified benign mammary dysplasia of left breast; Z91.89 Other specified personal risk factors, not elsewhere classified; N39.3 Stress incontinence (female) (male)

== ENCOUNTER → 2024-05-05 08:25 | Outpatient (BNVA) | payer OTHER, SELFPAY | PROVIDERS: PCP Nurse Practitioner Family; Visit Provider Nurse Practitioner Family | DX: F41.1 Generalized anxiety disorder (principal); F33.0 Major depressive disorder, recurrent, mild; N60.92 Unspecified benign mammary dysplasia of left breast; N39.3 Stress incontinence (female) (male); Z79.899 Other long term (current) drug therapy; Z91.89 Other specified personal risk factors, not elsewhere classified | CPT/HCPCS: 96127 ==

== ENCOUNTER 2024-05-15 09:57 | Outpatient (AMB) | payer OTHER, SELFPAY ==
--- NOTE | 2024-05-15 10:18 | A.OFFVIS_ITS ---
Intake Visit Reasons: Bulkamid- follow up Intake Note: Patient is present for Bulkamid F/u Urology Medication:NONE Antibiotic Allergy:NONE Blood Thinner:NONE Datastage Architect Required: No Allergies No Known Allergies [No Known Allergies*] Allergy (Verified 05/15/24 10:31) Medication List - Last Reconciled 05/15/24 by Allen Edward MD cetirizine (Zyrtec) 10 mg PO DAILY PRN melatonin 5 mg PO DAILY sertraline 75 mg (1.5 x 50 mg) PO DAILY sumatriptan succinate (Imitrex) take 1 tab at onset of headache; if no relief may repeat 1 tab after at least 2 hrs; max = 4 tabs/24 hr PO tamoxifen 20 mg PO DAILY HPI Comments Details: 05/15/23--Crystal is s/p Bulkamid 02/05/24--States she is doing well, minimal drops ocassional with cough, no leakage with running.FU in one year, reevaluate, in future can inject more bulkamid gel vs sling if needed. UA - negative. Review of chart: 01/03/24--Here for UDS. CMG parameters detailed below. Interpretation: During the procedure the bladder was stable during the filling phase. Detrusor instability was not observed. Leakage was observed with cough and Valsalva. Appropriate EMG changes in the waveforms were noted through out the study. Findings consistent with intrinsic sphincter deficiency. 20 minutes spent in review of records pertaining to this visit and including [id number] discussion with the patient and documentation of this visit. I have discussed treatment options to include urethral bulking and sling procedures. Risks and benefits discussed including but not limited to infection, bleeding, urinary retention, need to repeat or necessity to perform an alternative procedure. The patient is agreeable for urethral bulking procedure, Bulkamid. 10/29/23--43-year-old female here for evaluation urinary incontinence. Past medical history asthma, MDD, generalized anxiety disorder, migraines, 2 vaginal deliveries 05/2013 (about 7-1/2 lb), 04/2014 (approximately 9 lb). She complains of urinary leakage associated with activities running, sneezing coughing. She does note an urge component as well. Urinalysis: Leukocytes negative blood negative. Bladder scan PVR 0 mL. The patient has tried Kegel's, but has not seen a pelvic floor physical therapist as yet. Plan discussed will refer to pelvic floor physical therapy however there has been a long wait list in the surrounding area, we will check renal bladder ultrasound and I have discussed evaluation with urodynamics. [facility] Medical History Hx: UTI (urinary tract infection) Asthma Depression Anxiety Migraines Annual physical exam Surgical History History of lumpectomy of right breast (12/26/23) H/O surgical removal of hymen H/O removal of cyst Hx of tonsillectomy Family History Maternal Aunt H/O mastectomy Breast CA, Onset Age: 36 Father HTN (hypertension) Hypercholesteremia Brother Melanoma Paternal Grandmother Ovarian cancer Paternal Uncle FH: mental illness Substance use Paternal Aunt FH: mental illness Substance use Other Diabetes Social History Household Members: Spouse and Family Housing: House Are you a primary floor care technician to a significant other at home: No Do you presently have visiting nurse or other home services: No Alcohol intake: never Patient Tobacco Use Status: Never used Tobacco e-Cigarette/Vaping Use: Never Used Second Hand Smoke Exposure: No service: No Current occupational status: employed 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 Current occupational exposures/hazards: No Gender identity: Female Cognitive needs: No Hearing needs: No Vision needs: No Female Reproductive History Menstrual Age of Menarche: 12 Review of Systems Const All systems reviewed & are unremarkable except as noted in HPI and below Reports no additional complaints Eyes Reports no additional complaints ENT Reports no additional complaints Card Reports no additional complaints Resp Reports no additional complaints GI Reports no additional complaints Reports as per HPI Musc Reports no additional complaints Skin/Breast Reports system reviewed and no additional complaints, except as documented Neuro Reports no additional complaints Psych Reports no additional complaints Endo Reports no additional complaints Joseph/Lymph Reports no additional complaints Aller/Immun Reports no additional complaints Results AMB Urinalysis, Automated UA Leukoctes 0 Mirna/uL Last Edit by Harriett Cross on 05/15/24 10:30 UA Nitrite Negative Last Edit by Harriett America on 05/15/24 10:30 UA Urobilinogen 3.5 mg/dL Last Edit by Harriett America on 05/15/24 10:30 UA Protein 0 mg/dL Last Edit by Harriett America on 05/15/24 10:30 UA pH 6.0 Last Edit by Harriett America on 05/15/24 10:30 UA Blood 0 José Miguel/uL Last Edit by Harriett America on 05/15/24 10:30 UA Specific [place] 1.010 Last Edit by Harriett America on 05/15/24 10:30 UA Ketone Negative Last Edit by Harriett America on 05/15/24 10:30 UA Bilirubin 0 mg/dL Last Edit by Harriett America on 05/15/24 10:30 UA Glucose 0 mg/dL Last Edit by Harriett America on 05/15/24 10:30 Results Reviewed Results Reviewed: Laboratory Last Values Urine pH (Auto) 6.0 05/15/24 10:28 Specific [place] (Auto) 1.010 05/15/24 10:28 Urine Protein (Auto) 0 mg/dL 05/15/24 10:28 Glucose (UA)(Auto) 0 mg/dL 05/15/24 10:28 Urine Ketones (Auto) Negative 05/15/24 10:28 Urine Blood (Auto) 0 José Miguel/uL 05/15/24 10:28 Urine Nitrite (Auto) Negative 05/15/24 10:28 Urine Bilirubin (Auto) 0 mg/dL 05/15/24 10:28 Urine Urobilinogen (Auto) 3.5 mg/dL 05/15/24 10:28 Leukocyte Esterase (Auto) 0 Mirna/uL 05/15/24 10:28 Assessment & Plan Assessment & Plan (1) Intrinsic sphincter deficiency (ISD): Code(s): N36.42 - Intrinsic sphincter deficiency (ISD) Category: Medical Plan s/p Bulkamid urethral bulking injection 02/05/24. JOLENE symptoms significantly improved. Orders: Orders AMB Urinalysis Automated Today Z13.9 - Encounter for screening, unspecified AMB Urinalysis Automated Today Z13.9 - Encounter for screening, unspecified Patient Instructions: The patient had an opportunity to ask questions regarding treatment plan. The patient expressed understanding and agreement with the above treatment plan. The patient is aware they should contact our office by phone for worsening of their current condition or the appearance of new symptoms. Compliance is encouraged with any medications and followup testing that is ordered. It is a privilege to be allowed the opportunity to participate in the urologic care of your patient. If you have any questions or concerns regarding treatment for the above conditions please do not hesitate to contact me. The office telephone contact is [phone]. This note is constructed in part using voice recognition software. While every effort has been made to ensure accuracy type photography supervisor errors may have been included. Yours sincerely, Allen Edward MD Coding Level of Care Code Est Pt Level 3 (89532) Diagnoses Intrinsic sphincter deficiency (ISD) N36.42
== END 2024-05-15 10:58 | disposition home or self-care (01) ==
PROVIDERS: PCP Nurse Practitioner Family; Visit Provider Urology
DX: N36.42 Intrinsic sphincter deficiency (ISD) (principal); Z13.9 Encounter for screening, unspecified
CPT/HCPCS: 99213

== ENCOUNTER → 2024-05-15 09:57 | Outpatient (BNVA) | payer OTHER, SELFPAY | PROVIDERS: PCP Nurse Practitioner Family; Visit Provider Urology | DX: N36.42 Intrinsic sphincter deficiency (ISD) (principal) | CPT/HCPCS: 81003 ==

== ENCOUNTER 2024-06-20 09:21 | Outpatient (AMB) | payer OTHER, SELFPAY ==
--- NOTE | 2024-06-20 09:21 | MHC.PC.OV ---
Vital Signs 06/20/24 09:25 Height 5 ft 6 in Weight 133 lb BMI 21.5 BP 102/66 Blood Pressure Location Rt brachial Position Sitting Respiration 12 Pulse 74 Pulse Source Pulse Oximeter Temp 98.1 F Temp Source Oral Pulse Oximetry (%) 98 Oxygen Delivery Method Room Air Intake Visit Reasons: 6 weeks tele/in person 30 min fu PAULA Intake Note: follow up on meds Home Child Care Provider Required: No Allergies No Known Allergies [No Known Allergies*] Allergy (Verified 06/20/24 09:57) Medication List - Last Reconciled 06/20/24 by Jessica Perry, OUTBOARD MOTORBOAT RIGGER- cetirizine (Zyrtec) 10 mg PO DAILY PRN melatonin 5 mg PO DAILY sertraline 75 mg (1.5 x 50 mg) PO DAILY sumatriptan succinate (Imitrex) take 1 tab at onset of headache; if no relief may repeat 1 tab after at least 2 hrs; max = 4 tabs/24 hr PO tamoxifen 20 mg PO DAILY Tobacco use date assessed: 06/20/24 Dental Screening Dental Screen Date: 06/20/24 Did you have a dental visit in the last 12 months?: Yes Did you have a dental problem in the last 6 months where you did not have access to dental care?: No Was dental information given to patient?: Patient has dentist HPI HPI Comments History of Present Illness Details 43-year-old female with asthma, MDD, generalized anxiety disorder, migraines, family history of breast cancer maternal aunt, paternal grandmother with ovarian cancer, atypical ductal hyperplasia L breast (tamoxifen start 03/2024) Status post removal of cyst from the right shoulder, tonsillectomy, hymenectomy procedure with Dr. 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 - Recently increased the dose of sertraline to 75 mg, which has improved her symptoms. - Has encountered long waitlists for counseling but feels mentally better by implementing personal boundaries, specifically in familial interactions. - Reports improved interpersonal relationships at home and states continued engagement in exercise as a stress management tool. - Notes weight gain associated with tamoxifen, with a history of weight fluctuation post-bereavement. - No complications with medication procurement. Denies SI/HI Sleeping well w/o melatonin Exam Awake alert oriented NAD RRR LS CTAB Mood and affect appropriate Discussion Notes During the visit, the adjustments to the patient's Generalized Anxiety Disorder treatment plan were discussed, specifically the increase to 75 mg of sertraline, which has yielded positive results. We reviewed the challenges she has faced in accessing counseling services due to waitlists, and we discussed her self-management strategies, including boundary setting and maintaining a healthy lifestyle. The patient acknowledged the benefits of setting personal boundaries, particularly within family dynamics, which have contributed to her mental well-being. We also discussed her decision to lessen communication with her mother to reduce stress. With respect to weight management challenges linked to tamoxifen, the patient has been counseled to focus on diet and exercise. Plans for a 90-day supply of sertraline were confirmed, with no insurance barriers reported. We planned for follow-up physicals to continue as per regular intervals, emphasizing ongoing monitoring and support for her therapeutic regimen. Assessment and Plan 43-year-old female with a history of Generalized Anxiety Disorder presenting for a follow-up visit. The patient's condition has improved significantly with an increased sertraline dosage. Difficulty in accessing professional counseling has prompted her to adopt personal strategies, such as boundary setting. Stress related to familial interaction has been managed by reducing communication with her mother. She is experiencing weight gain, likely due to tamoxifen. Current management includes regular exercise and consistent medication access, with plans for future monitoring and evaluation of her ongoing treatment strategy. 1. Generalized Anxiety Disorder The current treatment regimen, which includes sertraline at 75 mg, is proving effective. The patient should maintain her approach to stress management by setting personal boundaries and exercising. Access to counseling remains limited, but it continues to be recommended when feasible. 2. Bereavement Recognizing the ongoing impact of bereavement on mental well-being, the patient is encouraged to continue her effective self-management strategies. Supportive therapy seeking is advised, though delayed due to waitlists. 3. ^ appetite due To Tamoxifen Discussions around tamoxifen-related weight gain highlighted the importance of diet and exercise in managing weight. The patient should focus on these methods to mitigate medication side effects. Patient Instructions - Continue taking sertraline at 75 mg as prescribed. - Maintain your exercise routine for stress relief and healthy weight management. - Focus on diet to help manage weight gain from tamoxifen. - Keep setting personal boundaries, especially with family, to manage stress. - Schedule your physical examination for any time after September 06. - Reach out if you experience any substantial changes in mood or weight management challenges. Consent Patient was informed and verbally consented to the use of an ambient scribe for clinic note documentation during this visit. Total time spent caring for the patient today was 30 minutes. This includes time spent before the visit reviewing the chart, time spent during the visit, and time spent after the visit on documentation, reviewing laboratory results, diagnostic imaging, medications, performing a medically necessary evaluation, counseling on diagnoses, care coordination, ordering appropriate tests, ordering appropriate medications, review of tests performed by other providers, reporting test results with the patient, communication with other healthcare providers. [facility] Medical History Hx: UTI (urinary tract infection) Asthma Depression Anxiety Migraines Annual physical exam Surgical History History of lumpectomy of right breast (12/26/23) H/O surgical removal of hymen H/O removal of cyst Hx of tonsillectomy Family History Maternal Aunt H/O mastectomy Breast CA, Onset Age: 36 Father HTN (hypertension) Hypercholesteremia Brother Melanoma Paternal Grandmother Ovarian cancer Paternal Uncle FH: mental illness Substance use Paternal Aunt FH: mental illness Substance use Other Diabetes Social History Household Members: Spouse and Family Housing: House Are you a primary intensive care unit registered nurse to a significant other at home: No Do you presently have visiting nurse or other home services: No Alcohol intake: never Patient Tobacco Use Status: Never used Tobacco e-Cigarette/Vaping Use: Never Used Second Hand Smoke Exposure: No service: No Current occupational status: employed 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 1. Little interest or pleasure in doing things: not at all 2. Feeling down, depressed, or hopeless: not at all 3. Trouble falling or staying asleep, or sleeping too much: not at all 4. Feeling tired or having little energy: not at all 5. Poor appetite or overeating: not at all 6. Feeling bad about yourself - or that you are a failure or have let yourself or your family down: not at all 7. Trouble concentrating on things, such as reading the newspaper or watching television: not at all 8. Moving or speaking so slowly that other people could have noticed. Or the opposite - being so fidgety or restless that you have been moving around a lot more than usual: not at all 9. Thoughts that you would be better off or of hurting yourself in some way: not at all Total score: 0 Depression Screening Interpretation: Negative Depression Screening Done: Yes 16607 - PHQ-9 Billing: Yes Source: Developed by Drs. Migue Moreno, Cari Bazan, Mukesh Fischer and colleagues, with an educational rj from [email or web address]. Thrive Questionnaire Date Thrive assessed: 06/20/24 I am a: Patient What is your living situation today?: I have a steady place to live Within the past 12 months, did the food you bought not last and you didn't have the money to get more?: Never true Within the past 12 months, did you worry whether your food would run out before you got money to buy more?: Never true Do you have trouble paying for medicines?: No Do you have trouble getting transportation to medical appointments?: No Do you have trouble paying your heating and electricity bill?: No Do you have trouble taking care of your child, family member or friend?: No Do you have trouble with day-to-day activities such as bathing, preparing meals, shopping, managing finances, etc.?: No Are you currently unemployed and looking for a job?: No Are you interested in more education?: No Please select the resources that you would like help with: None Currently or been in a relationship where the following occur: No concerns reported THRIVE Score: 0 AUDIT C Alcohol Use Questionnaire (AUDIT-C) 1. How often do you have a drink containing alcohol?: Monthly or less 2. How many drinks containing alcohol do you have on a typical day when you are drinking?: 1 or 2 3. How often do you have six or more drinks on one occasion?: Never Total Score: 1 Score Reviewed/Action Taken: Yes PAULA-7 AMB Questionnaire PAULA-7 Date PAULA - 7 assessed: 06/20/24 Feeling nervous, anxious, or on edge: 0 = Not at all Not being able to stop or control worryin = Not at all Worrying too much about different things: 0 = Not at all Trouble relaxin = Not at all Being so restless that it is hard to sit still: 0 = Not at all Becoming easily annoyed or irritable: 0 = Not at all Feeling afraid as if something awful might happen: 0 = Not at all Total PAULA-7 score (0-4 normal; 5-9 mild; 10-14 moderate; 15-21 severe): 0 Source: Developed by Drs. Migue Moreno, Cari Bazan, Mukesh Fischer and colleagues, with an educational rj from [email or web address]. PAULA-7 Assessment Billing PAULA-7 Assessment Tool: PAULA-7 Assessment 40637 Physical exam (Primary Care) Vital Signs: Last Vital Signs Temp 98.1 F 06/20/24 09:25 Pulse 74 06/20/24 09:25 Resp 12 06/20/24 09:25 BP 102/66 06/20/24 09:25 Pulse Ox 98 06/20/24 09:25 Oxygen Delivery Method Room Air 06/20/24 09:25 BMI result Body Mass Index 21.5 Tobacco/Smoking Status: Tobacco use Status Tobacco use date assessed 06/20/24 06/20/24 09:26 Patient Tobacco Use Status Never used Tobacco 06/20/24 09:26 e-Cigarette/Vaping Use Never Used 06/20/24 09:26 Depression Screening Interpretation: Negative Thrive Assessment: Date of Thrive Assessment Date Thrive assessed 06/20/24 06/20/24 09:26 Currently or been in a relationship where the following occur: No concerns reported Coding Level of Care Code Est Pt Level 4 (60785) Complex EM visit Add On G2211 Diagnoses PAULA (generalized anxiety disorder) F41.1 Mild episode of recurrent major depressive disorder F33.0 Major depression episode severity: mild Additional Codes PAULA-7 Assessment Billing - PAULA-7 Assessment Tool: PAULA-7 Assessment 07486 ([id number]) PHQ-9 - 74237 - PHQ-9 Billing: Yes ([id number]) Assessment & Plan Assessment & Plan (1) PAULA (generalized anxiety disorder): Comment: Was on Celexa during child bearing years and then was switched to sertraline. Code(s): F41.1 - Generalized anxiety disorder Category: Medical (2) MDD (major depressive disorder), recurrent episode: Comment: See PAULA care plan Code(s): F33.9 - Major depressive disorder, recurrent, unspecified Category: Medical Qualifiers: Major depression episode severity: mild Qualified Code(s): F33.0 - Major depressive disorder, recurrent, mild Plan . Medications: Changed From sertraline 75 mg (1.5 x 50 mg) PO DAILY 45 tabs 1RF To sertraline 75 mg (1.5 x 50 mg) PO DAILY 90 days 135 tabs 2RF
[2024-06-20 09:25] VITALS: BP 102/66; PULSE 74; RESP 12; TEMP 36.7; O2SAT 98; BMI 21.5
== END 2024-06-20 10:07 | disposition home or self-care (01) ==
PROVIDERS: PCP Nurse Practitioner Family; Visit Provider Nurse Practitioner Family
DX: F41.1 Generalized anxiety disorder (principal); F33.0 Major depressive disorder, recurrent, mild

== ENCOUNTER → 2024-06-20 09:21 | Outpatient (BNVA) | payer OTHER, SELFPAY | PROVIDERS: PCP Nurse Practitioner Family; Visit Provider Nurse Practitioner Family | DX: F41.1 Generalized anxiety disorder (principal); F33.0 Major depressive disorder, recurrent, mild | CPT/HCPCS: 96127 ==

== ENCOUNTER 2024-07-08 08:57 | Outpatient (AMB) | payer OTHER, SELFPAY ==
--- NOTE | 2024-07-08 09:02 | MHC.OFFVIS ---
Vital Signs 07/08/24 09:09 Height 5 ft 6 in Weight 134 lb 6 oz BMI 21.7 BP 120/63 Blood Pressure Location Lt brachial Position Sitting Pulse 56 Intake Visit Reasons: 6 month follow up, breast exam Intake Note: Pt is seen in office for 6 month follow up visit, breast exam. 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 Pathology revealed fibrocystic change with columnar cell change, sclerosing adenosis with microcalcifications and radial sclerosing lesion/radial scar, no evidence of malignancy. Because of the radial scar a wider excision was recommended and she subsequently underwent left breast lumpectomy with localizer on 12/26/2023. Pathology did reveal a single focus of ductal atypia with calcifications and thermal crush artifact, compatible with atypical ductal hyperplasia and focal flat epithelial atypia. The findings were reviewed in detail with the patient and a copy of the report provided. She denies a previous history of breast problems and her family history is significant for a maternal aunt with breast cancer in a paternal grandmother with ovarian cancer. Her brother was treated for melanoma. She underwent genetic testing on 11/27/2023. This revealed no clinically significant mutations. No variance of uncertain significance were identified. Her breast cancer risk score was calculated at 32.3% placing her at high risk for breast cancer. She is . She was evaluated by Dr. Hooks and placed on tamoxifen. She is tolerating this well but does note some leg cramps and hair loss. She denies any new breast symptoms. She is scheduled for a follow-up mammogram on 09/30/2024. She reports the Dr. Hooks we will be scheduling her breast MRI as well. [facility] Medical History Hx: UTI (urinary tract infection) Asthma Depression Anxiety Migraines Annual physical exam Surgical History History of lumpectomy of right breast (12/26/23) H/O surgical removal of hymen H/O removal of cyst Hx of tonsillectomy Family History Maternal Aunt H/O mastectomy Breast CA, Onset Age: 36 Father HTN (hypertension) Hypercholesteremia Brother Melanoma Paternal Grandmother Ovarian cancer Paternal Uncle FH: mental illness Substance use Paternal Aunt FH: mental illness Substance use Other Diabetes Social History Household Members: Spouse and Family Housing: House Are you a primary human services care specialist to a significant other at home: No Do you presently have visiting nurse or other home services: No Alcohol intake: never Patient Tobacco Use Status: Never used Tobacco e-Cigarette/Vaping Use: Never Used Second Hand Smoke Exposure: No service: No Current occupational status: employed 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 Current occupational exposures/hazards: No Gender identity: Female Cognitive needs: No Hearing needs: No Vision needs: No Female Reproductive History Menstrual Age of Menarche: 12 Review of Systems Const All systems reviewed & are unremarkable except as noted in HPI and below Physical Exam Vital Signs: Last Vital Signs Pulse 56 07/08/24 09:09 BP 120/63 07/08/24 09:09 BMI result Body Mass Index 21.7 Const General: no acute distress Nutritional Appearance: well nourished Orientation/consciousness: patient oriented x3 Chest Other: Left breast: No skin change, no nipple retraction, no nipple discharge, no palpable mass, no enlarged lymph nodes, well-healed incision in the periareolar location, 12:00 o'clock as noted below. Right breast: No skin change, no nipple retraction, no nipple discharge, no palpable mass, no enlarged lymph nodes Chest/axillae images: 1. Incision left breast Resp Effort & Inspection: normal respiratory effort, no audible wheezes, no cough and no respiratory distress GI Inspection: Yes normal to inspection Neuro General: patient oriented x3 Extrem General: Yes normal to inspection Assessment & Plan Assessment & Plan (1) Atypical ductal hyperplasia of left breast: Code(s): N60.92 - Unspecified benign mammary dysplasia of left breast Category: Medical (2) Family history of breast cancer in female: Code(s): Z80.3 - Family history of malignant neoplasm of breast Category: Medical (3) Increased risk of breast cancer: Code(s): Z91.89 - Other specified personal risk factors, not elsewhere classified Category: Medical Plan 43-year-old female patient diagnosed with atypical ductal hyperplasia of the left breast following a recent lumpectomy for radial scar. She continues on her high risk protocol with twice yearly clinical breast exams, yearly mammogram and breast MRIs alternating every 6 months. Examination today reveals no suspicious findings in either breast. She is due for a follow-up mammogram in September. She will continue her follow-up with Dr. Hooks every 3 months. She was placed her on tamoxifen and she is tolerating this fairly well. I will see her again in approximately 6 months, sooner p.r.n.. Coding Level of Care Code Est Pt Level 3 (28208) Complex EM visit Add On G2211 Diagnoses Atypical ductal hyperplasia of left breast N60.92 Family history of breast cancer in female Z80.3 Increased risk of breast cancer Z91.89
[2024-07-08 09:09] VITALS: BP 120/63; PULSE 56; BMI 21.7
== END 2024-07-08 09:20 | disposition home or self-care (01) ==
PROVIDERS: PCP Nurse Practitioner Family; Visit Provider Surgery
DX: N60.92 Unspecified benign mammary dysplasia of left breast (principal); Z80.3 Family history of malignant neoplasm of breast; Z91.89 Other specified personal risk factors, not elsewhere classified
CPT/HCPCS: 99213

== ENCOUNTER → 2024-07-08 08:57 | Outpatient (BNVA) | payer OTHER, SELFPAY | PROVIDERS: PCP Nurse Practitioner Family; Visit Provider Surgery ==

== ENCOUNTER → 2024-09-30 09:30 | Outpatient (BNV) | payer OTHER, SELFPAY | PROVIDERS: PCP Nurse Practitioner Family; Visit Provider Internal Medicine | DX: Z12.31 Encounter for screening mammogram for malignant neoplasm of breast (principal) | CPT/HCPCS: 77063; 77067 ==

== ENCOUNTER 2024-09-30 09:39 | Outpatient (REF) | payer OTHER, SELFPAY | END 2024-09-30 09:40 | disposition home or self-care (01) | LOC: HO.MAMMO 09:39 | PROVIDERS: PCP Nurse Practitioner Family; Visit Provider Internal Medicine Medical Oncology | DX: Z12.31 Encounter for screening mammogram for malignant neoplasm of breast (principal) | CPT/HCPCS: 77063; 77067 ==

== ENCOUNTER 2024-12-16 07:47 | Outpatient (AMB) | payer OTHER, SELFPAY ==
--- NOTE | 2024-12-16 07:50 | A.OFFPC_ITS ---
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: No Allergies No Known Allergies (No Known Allergies*) Allergy (Verified 12/16/24 08:02) Medication List - Last Reconciled 12/16/24 by PEGGY SonP- calcium carbonate (Calcium 600) 600 mg PO DAILY cetirizine (Zyrtec) 10 mg PO DAILY PRN magnesium 400 mg PO DAILY melatonin 5 mg PO DAILY sertraline 75 mg (1.5 x 50 mg) PO DAILY 90 days sumatriptan succinate (Imitrex) take 1 tab at onset of headache; if no relief may repeat 1 tab after at least 2 hrs; max = 4 tabs/24 hr PO tamoxifen 20 mg PO DAILY Tobacco use date assessed: 12/16/24 Dental Screening Dental Screen Date: 12/16/24 Did you have a dental visit in the last 12 months?: Yes Did you have a dental problem in the last 6 months where you did not have access to dental care?: No HPI HPI Comments History of Present Illness Details 44-year-old female with asthma, MDD, gen eralized anxiety disorder, migraines, family history of breast cancer maternal aunt, paternal grandmother with ovarian cancer, atypical ductal hyperplasia L breast (tamoxifen start 03/2024) Status post removal of cyst from the right shoulder, tonsillectomy, hymenectomy procedure with Dr. Gómez after child , Cystoscopy urethral bulking with bulkamid system 02/2024 Family history: Brother with melanoma ( ? 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 - Insomnia addressed with melatonin supp lementation. - Intermittent migraines treated with bates matriptan. Needing to take 50mg more consistently for migraine control; wonders about increase. - Tamoxifen used due to high breast canc er risk, causing leg cramps, alleviated by calcium and magnesium. - Seasonal allergies controlled with cet irizine. - Noted cyst on R shoulder noticed abou t 1 year, does not think it changed; had a similar one on R shoulder removed age 22's by Derm - Last Pap in 2023 - Reports new onset vision changes; will undergo Retina testing W/ Dr Pearson Health Maintenance - Ongoing management of breast cancer ri with tamoxifen. - Recent labs 10/2024 and previous geneti c testing showed no significant findings. - Routine eye and women's health screeni ngs pending, including Pap smear - Calcium and magnesium supplementation for OTC management discussed. Review of Systems - Psychiatric: Reports stable mood on me dication. - Neurological: Reports migraines; Visio n described as occasionally cloudy, possibly related to tamoxifen. Eye exam pending with Dr. Pearson. - Musculoskeletal: Reports leg cramps re lated to medication, managed with supplementation. - Respiratory: Denies issues. - Cardiovascular: Denies issues. - Gastrointestinal: Denies issues. - Genitourinary: Reports stable pelvic h ealth. - Dermatological: Notes a stable lesion on shoulder. Physical Exam General: Well developed, well nourished, in no acute distress. Appears stated age. Head: Normocephalic, atraumatic. Eyes: Pupils are equal, round and reactive to light and accommodation. Conjunctivae are clear. Scleras nonicteric bilat Ears: TMs clear AU, EACS WNL Nose: Patent, without discharge. Neck: Supple, no adenopathy or thyromegaly. Breast: High risk for breast cancer, on tamoxifen. Edu on SBE. Lungs: Clear to auscultation bilaterally. No rales, rhonchi or wheeze noted. Good air flow in all thomas. Heart: Regular rate and rhythm. No murmurs, click, rubs or gallops are noted. Abdomen: Bowel sounds present in all quadrants. The abdomen is soft, nontender, with no masses or organomegaly noted. No hernias are noted. : Deferred. Reviewed recommendations for routine MEN'S SWIM COACH. Pulses: Peripheral pulses are equal and palpable bilaterally. Extremities: No clubbing, cyanosis nor edema is noted. Neurologic: Gait and station normal. Cranial Nerves 2-12 intact. Motor strength grossly symmetrical and intact. No sensory loss. Balance normal. Skin: No rashes, ulcers, or lesions noted. Turgor is good. Skin color is good. Hair and nails are without abnormalities. Subdermal cyst R posterior shoulder ? lipoma Psych: Normal eye contact, affect and mood appropriate, and normal interactions. Patient is alert and appropriate to context. H Results - Labs: Recent labs and cholesterol gene tic test normal. Discussion Notes During today's visit, I reviewed the patient's current management strategies for her health maintenance and chronic conditions, including major depressive disorder, anxiety, insomnia, and migraines. We discussed the management plan for her high-risk breast cancer status, confirming her ongoing use of tamoxifen. I recommended she continue her calcium and magnesium supplements to manage leg cramps induced by tamoxifen. Regarding her migraines, she noted occasional persistence but reported relief with the current sumatriptan dosage. Her seasonal allergies appeared controlled under cetirizine. We discussed the importance of following up with women's health screenings, including a Pap smear. I advised maintaining her current health maintenance steps, including an eye exam scheduled with a specialist. Follow-ups for any changes or emergent issues were encouraged, and I addressed her queries, ensuring clarity on self- management strategies. Patient was given time to ask questions. All questions were answered to their satisfaction. Assessment and Plan 1. Major Depressive Disorder - Continue sertraline 75 mg daily. 2. Generalized Anxiety Disorder - Maintain current medications. 3. Insomnia - Use melatonin as needed. 4. Migraine Headaches - Increase sumatriptan from 25mg to 50mg 5. High risk for Breast Cancer - Continue tamoxifen regimen & care lucretia Slater and Dr Monroy 6. Seasonal Allergies - Maintain cetirizine usage. 7. Leg Cramps - Use calcium and magnesium supplements. 8. Shoulder Lesion, R - Referral placed to Gen Surg to see if he can manage at same time as her next breast visit; if not new appt will be needed. She is agreeable 9. Women's Health - Update Pap smear and eye exams. Get me copy of Dr Hawthorne workup RTO 6 MO MOOD CHECK IN, SOONER PRN Patient Instructions - Continue taking sertraline, melatonin, sumatriptan, and tamoxifen as prescribed. - Use cetirizine as needed for allergies . - Maintain calcium and magnesium supplem entation for cramps. - Follow through with the upcoming eye e xam and obtain Pap smear if possible. - Monitor for changes in the shoulder le ramakrishna and seek evaluation if needed. - Reach out if any new symptoms arise or for further questions. Consent Patient was informed and verbally consented to the use of an ambient scribe for clinic note documentation during this visit. [facility] Medical History (Updated 12/16/24 @ 08:30 by Jessica Perry [facility]) Annual physical exam (~12/16/24) Anxiety Asthma Depression Hx: UTI (urinary tract infection) Microalbuminuria Migraines Surgical History H/O removal of cyst H/O surgical removal of hymen History of lumpectomy of right breast (12/26/23) Hx of tonsillectomy Family History Maternal Aunt H/O mastectomy Breast CA, Onset Age: 36 Father HTN (hypertension) Hypercholesteremia Brother Melanoma Paternal Grandmother Ovarian cancer Paternal Uncle FH: mental illness Substance use Paternal Aunt FH: mental illness Substance use Other Diabetes Social History Household Members: Spouse and Family Housing: House Are you a primary customer care assistant to a significant other at home: No Do you presently have visiting nurse or other home services: No Alcohol intake: never Patient Tobacco Use Status: Never used Tobacco e-Cigarette/Vaping Use: Never Used Second Hand Smoke Exposure: No service: No Current occupational status: employed 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 1. Little interest or pleasure in doing things: not at all 2. Feeling down, depressed, or hopeless: not at all 3. Trouble falling or staying asleep, or sleeping too much: not at all 4. Feeling tired or having little energy: not at all 5. Poor appetite or overeating: not at all 6. Feeling bad about yourself - or that you are a failure or have let yourself or your family down: not at all 7. Trouble concentrating on things, such as reading the newspaper or watching television: not at all 8. Moving or speaking so slowly that other people could have noticed. Or the opposite - being so fidgety or restless that you have been moving around a lot more than usual: not at all 9. Thoughts that you would be better off or of hurting yourself in some way: not at all Total score: 0 Depression Screening Interpretation: Negative Depression Screening Done: Yes 40034 - PHQ-9 Billing: Yes Source: Developed by Drs. Migue Moreno, Cari Bazan, Mukesh Fischer and colleagues, with an educational rj from [employer]. Thrive Questionnaire Date Thrive assessed: 12/16/24 I am a: Patient What is your living situation today?: I have a steady place to live Within the past 12 months, did the food you bought not last and you didn't have the money to get more?: Never true Within the past 12 months, did you worry whether your food would run out before you got money to buy more?: Never true Do you have trouble paying for medicines?: No Do you have trouble getting transportation to medical appointments?: No Do you have trouble paying your heating and electricity bill?: No Do you have trouble taking care of your child, family member or friend?: No Do you have trouble with day-to-day activities such as bathing, preparing meals, shopping, managing finances, etc.?: No Are you currently unemployed and looking for a job?: No Are you interested in more education?: No Please select the resources that you would like help with: None Currently or been in a relationship where the following occur: No concerns reported THRIVE Score: 0 AUDIT C Alcohol Use Questionnaire (AUDIT-C) 1. How often do you have a drink containing alcohol?: Never 3. How often do you have six or more drinks on one occasion?: Never Total Score: 0 Score Reviewed/Action Taken: Yes PAULA-7 AMB Questionnaire PAULA-7 Date PAULA - 7 assessed: 12/16/24 Feeling nervous, anxious, or on edge: 0 = Not at all Not being able to stop or control worryin = Not at all Worrying too much about different things: 0 = Not at all Trouble relaxin = Not at all Being so restless that it is hard to sit still: 0 = Not at all Becoming easily annoyed or irritable: 0 = Not at all Feeling afraid as if something awful might happen: 0 = Not at all Total PAULA-7 score (0-4 normal; 5-9 mild; 10-14 moderate; 15-21 severe): 0 Source: Developed by Drs. Migue Moreno, Cari Bazan, Mukesh Fischer and colleagues, with an educational rj from [employer]. PAULA-7 Assessment Billing PAULA-7 Assessment Tool: PAULA-7 Assessment 04199 Physical exam (Primary Care) Vital Signs: Last Vital Signs Temp 97.1 F 12/16/24 07:55 Pulse 58 12/16/24 07:55 Resp 12 12/16/24 07:55 BP 118/68 12/16/24 07:55 Pulse Ox 98 12/16/24 07:55 Oxygen Delivery Method Room Air 12/16/24 07:55 BMI result Body Mass Index 21.9 Tobacco/Smoking Status: Tobacco use Status Tobacco use date assessed 12/16/24 12/16/24 07:57 Patient Tobacco Use Status Never used Tobacco 12/16/24 07:50 e-Cigarette/Vaping Use Never Used 12/16/24 07:50 PHQ-9: PHQ-9 Score PHQ-9: Total score 0 12/16/24 07:57 Depression Screening Interpretation: Negative Thrive Assessment: Date of Thrive Assessment Date Thrive assessed 12/16/24 12/16/24 07:57 Currently or been in a relationship where the following occur: No concerns reported Coding Level of Care Code Est Pt Prev Care 40-64y(27538) Diagnoses Annual physical exam Z00.00 Laboratory exam ordered as part of routine general medical examination Z00.00 Migraine without aura and without status migrainosus, not intractable G43.009 Status migrainosus presence: without status migrainosus Intractability: not intractable Atypical ductal hyperplasia of left breast N60.92 Family history of breast cancer in female Z80.3 Increased risk of breast cancer Z91.89 PAULA (generalized anxiety disorder) F41.1 Mild episode of recurrent major depressive disorder F33.0 Major depression episode severity: mild Cervical cancer screening Z12.4 Cyst of skin L72.9 Additional Codes PAULA-7 Assessment Billing - PAULA-7 Assessment Tool: PAULA-7 Assessment 59090 ([id number]) PHQ-9 - 45136 - PHQ-9 Billing: Yes ([id number]) Assessment & Plan Assessment & Plan (1) Annual physical exam: Onset Date: ~12/16/24 Comment: Patient reports a family history of lipoprotein a in her brother. He was managed in [place] by Cardiology. She had Negative lipoprotein 2023 Code(s): Z00.00 - Encounter for general adult medical examination without abnormal findings Category: Medical (2) Laboratory exam ordered as part of routine general medical examination: Code(s): Z00.00 - Encounter for general adult medical examination without abnormal find ings Category: Medical (3) Migraine headache without aura: Comment: Managed well with Imitrex Code(s): G43.009 - Migraine without aura, not intractable, without status migrainosus Category: Medical Qualifiers: Status migrainosus presence: without status migrainosus Intractability: not intractable Qualified Code(s): G43.009 - Migraine without aura, not intractable, without status migrainosus (4) Atypical ductal hyperplasia of left breast: Code(s): N60.92 - Unspecified benign mammary dysplasia of left breast Category: Medical (5) Family history of breast cancer in female: Code(s): Z80.3 - Family history of malignant neoplasm of breast Category: Medical (6) Increased risk of breast cancer: Code(s): Z91.89 - Other specified personal risk factors, not elsewhere classified Category: Medical (7) PAULA (generalized anxiety disorder): Comment: Was on Celexa during child bearing years and then was switched to sertraline. Code(s): F41.1 - Generalized anxiety disorder Category: Medical (8) MDD (major depressive disorder), recurrent episode: Comment: See PAULA care plan Code(s): F33.9 - Major depressive disorder, recurrent, unspecified Category: Medical Qualifiers: Major depression episode severity: mild Qualified Code(s): F33.0 - Major depressive disorder, recurrent, mild (9) Cervical cancer screening: Onset Date: 06/2023 Comment: kwadwo mcnamara, record on file Code(s): Z12.4 - Encounter for screening for malignant neoplasm of cervix Category: Medical (10) Cyst of skin: Comment: Amandeep dodge Code(s): L72.9 - Follicular cyst of the skin and subcutaneous tissue, unspecified Category: Medical Plan . Orders: Referrals General Surgery Referral L72.9 - Follicular cyst of the skin and subcutaneous tissue, unspecified Medications: New sumatriptan succinate (Imitrex) take 1 tab at onset of headache; if no relief may repeat 1 tab after at least 2 hrs; max = 4 tabs/24 hr PO 7 tabs 12RF Refilled sertraline 75 mg (1.5 x 50 mg) PO DAILY 135 tabs 1RF 90 days Discontinued sumatriptan succinate (Imitrex) Discontinued Reason: Patient Completed Course take 1 tab at onset of headache; if no relief may repeat 1 tab after at least 2 hrs; max = 4 tabs/24 hr PO 10 tabs 5RF Patient Instructions: Health screenings for women You should visit your health care provider from time to time, even if you are healthy. The purpose of these visits is to: Screen for medical issues Assess your risk for future medical problems Encourage a healthy lifestyle Update vaccinations and other preventive care services Help you get to know your provider in case of an illness Information Even if you feel fine, you should still see your provider for regular checkups. These visits can help you avoid problems in the future. For example, the only way to find out if you have high blood pressure is to have it checked regularly. High blood sugar and high cholesterol levels also may not have any symptoms in the early stages. A simple blood test can check for these conditions. There are specific times when you should see your provider or receive specific health screenings. The [place] Preventive Services Task Force publishes a list of recommended screenings. Below are screening guidelines for women ages 18 to 39. BLOOD PRESSURE SCREENING Your blood pressure should be checked at least once every 3 to 5 years if: Your blood pressure is in the normal range (top number less than 120 mm Hg and bottom number less than 80 mm Hg) You don't have risk factors for high blood pressure Ask your provider if you need your blood pressure checked more often if: The top number is 120 to 129 mm Hg or the bottom number is 70 to 79 mm Hg You have diabetes, heart disease, kidney problems, are overweight, or have certain other health conditions You have a first-degree relative with high blood pressure You are Black You had high blood pressure during a If the top number is 130 mm Hg or greater or the bottom number is 80 mm Hg or greater, this is considered stage 1 hypertension. Schedule an appointment with your provider to learn how you can reduce your blood pressure. Watch for blood pressure screenings in your area. Ask your provider if you can stop in to have your blood pressure checked. BREAST CANCER SCREENING Experts do not agree about the benefits of breast self-exams in finding breast cancer or saving lives. Talk to your provider about what is best for you. A screening mammogram is not recommended for most women under age 40. Your provider may discuss and recommend mammograms, MRI scans, or ultrasounds if you have an increased risk for breast cancer, such as: A mother or sister who had breast cancer at a young age (most often starting screening earlier than the age the close relative was diagnosed) You carry a high-risk genetic marker CERVICAL CANCER SCREENING Cervical cancer screening should start at age 21 years unless your provider advises otherwise. After the first test: Women ages 21 through 29 should have a Pap test every 3 years. Exoprts do not agree on whether HPV testing is recommended for this age group. Women ages 30 through 65 should be screened with either a Pap test every 3 years or the HPV test every 5 years or both tests every 5 years (called cotesting ). Women who have been treated for precancer (cervical dysplasia) should continue to have Pap tests for 20 years after treatment or until age 65, whichever is longer. If you have had your uterus and cervix removed (total hysterectomy), and you have not been diagnosed with cervical cancer or precancer (high grade cervical neoplasia), you do not need cervical cancer screening. CHOLESTEROL SCREENING Cholesterol screening should begin at: Age 45 for women with no known risk factors for coronary heart disease Age 20 for women with known risk factors for coronary heart disease Repeat cholesterol screening should take place: Every 5 years for women with normal cholesterol levels More often if changes occur in lifestyle (including weight gain and diet) More often if you have diabetes, heart disease, kidney problems, or certain other conditions DIABETES SCREENING You should be screened for diabetes starting at age 35 and then repeated every 3 years if you have no risk factors for diabetes. Screening may need to start earlier and be repeated more often if you have other risk factors for diabetes, such as: You have a first degree relative with diabetes. You are overweight or have obesity. You have high blood pressure, prediabetes, or a history of heart disease. Screening for diabetes should be done if you are planning to become and you are overweight and have other risk factors such as high blood pressure. DENTAL EXAM Go to the dentist once or twice every year for an exam and cleaning. Your dentist will evaluate if you need more frequent visits. EYE EXAM Have an eye exam every 5 to 10 years before age 40. If you have vision problems, have an eye exam every 2 years or more often if recommended by your provider. You should have an eye exam that includes an examination of your retina (back of your eye) at least every year if you have diabetes. IMMUNIZATIONS Commonly needed vaccines include: Flu shot: get one every year. COVID-19 vaccine: ask your provider what is best for you. Tetanus-diphtheria and acellular pertussis (Tdap) vaccine: have one at or after age 19 as one of your tetanus-diphtheria vaccines if you did not receive it as an adolescent. Tetanus-diphtheria: have a booster (or Tdap) every 10 years. Varicella vaccine: receive 2 doses if you never had chickenpox or the varicella vaccine. Hepatitis B vaccine: receive 2, 3, or 4 doses, depending on your exact circumstances. Measles, mumps, and rubella (MMR) vaccine: receive 1 to 2 doses if you are not already immune to MMR. Your provider can tell you if you are immune. Ask your provider about the human papillomavirus (HPV) vaccine if: You have not received the HPV vaccine in the past You have not completed the full vaccine series (you should catch up on this shot) Ask your provider if you should receive other immunizations if you have certain health problems that increase your risk for some diseases such as pneumonia. INFECTIOUS DISEASE SCREENING Women who are sexually active should be screened for chlamydia and gonorrhea up until age 25. Women 25 years and older should be screened for chlamydia and gonorrhea if at high risk. Screening for hepatitis C: All adults ages 18 to 79 should get a one-time test for hepatitis C. people should be screened at every . Screening for human immunodeficiency virus (HIV): All people ages 15 to 65 should get a one-time test for HIV. Depending on your lifestyle and medical history, you may also need to be screen ed for infections such as syphilis and HIV, as well as other infections. PHYSICAL EXAM All adults should visit their provider from time to time, even if they are healthy. The purpose of these visits is to: Screen for disease Assess your risk of future medical problems Encourage a healthy lifestyle Update your vaccinations and other preventive care services Maintain a relationship with a provider in case of an illness Your height, weight, and BMI should be checked at every exam. During your exam, your provider may ask you about: Depression and anxiety Diet and exercise Alcohol and tobacco use Safety issues, such as using seat belts, smoke detectors, and intimate partner violence Your medicines and risk for interactions SKIN SELF-EXAM Your provider may check your skin for signs of skin cancer, especially if you're at high risk, such as if you: Have had skin cancer before Have close relatives with skin cancer Have a weakened immune system OTHER SCREENING Talk with your provider about colon cancer screening if you have a strong family history of colon cancer or polyps, or if you have had inflammatory bowel disease or polyps yourself. Routine bone density screening of women under 40 is not recommended.
[2024-12-16 07:55] VITALS: BP 118/68; PULSE 58; RESP 12; TEMP 36.2; O2SAT 98; BMI 21.9
== END 2024-12-16 08:23 | disposition home or self-care (01) ==
LOC: HO.HMCFM 07:48
PROVIDERS: PCP Nurse Practitioner Family; Visit Provider Nurse Practitioner Family
DX: Z00.00 Encounter for general adult medical examination without abnormal findings (principal); G43.009 Migraine without aura, not intractable, without status migrainosus; N60.92 Unspecified benign mammary dysplasia of left breast; Z80.3 Family history of malignant neoplasm of breast; Z91.89 Other specified personal risk factors, not elsewhere classified; F41.1 Generalized anxiety disorder; F33.0 Major depressive disorder, recurrent, mild; Z12.4 Encounter for screening for malignant neoplasm of cervix; L72.9 Follicular cyst of the skin and subcutaneous tissue, unspecified

== ENCOUNTER → 2024-12-16 07:47 | Outpatient (BNVA) | payer OTHER, SELFPAY | PROVIDERS: PCP Nurse Practitioner Family; Visit Provider Nurse Practitioner Family | DX: F41.1 Generalized anxiety disorder (principal); J45.909 Unspecified asthma, uncomplicated; G47.00 Insomnia, unspecified; G43.009 Migraine without aura, not intractable, without status migrainosus; N60.92 Unspecified benign mammary dysplasia of left breast; F33.0 Major depressive disorder, recurrent, mild; L72.9 Follicular cyst of the skin and subcutaneous tissue, unspecified; Z80.3 Family history of malignant neoplasm of breast; Z91.09 Other allergy status, other than to drugs and biological substances; Z91.89 Other specified personal risk factors, not elsewhere classified | CPT/HCPCS: 96127 ==

== ENCOUNTER 2025-01-19 11:53 | Outpatient (AMB) | payer OTHER, SELFPAY ==
--- NOTE | 2025-01-19 11:56 | A.OFFVIS_ITS ---
Vital Signs 3 01/19/25 12:05 Height 5 ft 6 in Weight 134 lb 7.712 oz BMI 21.7 BP 112/72 Blood Pressure Location Lt brachial Position Sitting Intake Visit Reasons: 6 month follow up, breast exam Intake Note: Patient is seen in office for 6 month follow up visit, breast exam. Pt c/o: denies any concerns regarding the breast, has a lump on the left shoulder that would like to have evaluated, not interested in removal unless necessary mm:09/30/24 Solution Professional Required: No Public Health Informatician: Public Health Informatician Present Accompanied by: Self / Same As Patient Allergies No Known Allergies (No Known Allergies*) Allergy (Verified 01/19/25 12:06) Medication List - Last Reconciled 01/19/25 by Olman Slater MD calcium carbonate (Calcium 600) 600 mg PO DAILY cetirizine (Zyrtec) 10 mg PO DAILY PRN magnesium 400 mg PO DAILY melatonin 5 mg PO DAILY sertraline 75 mg (1.5 x 50 mg) PO DAILY 90 days sumatriptan succinate (Imitrex) take 1 tab at onset of headache; if no relief may repeat 1 tab after at least 2 hrs; max = 4 tabs/24 hr PO tamoxifen 20 mg PO DAILY HPI Comments Details: 44-year-old female patient found to have a cluster of microcalcifications in the left breast and subsequently underwent stereotactic guided core biopsy at the [facility] on 11/15/2023. Pathology revealed fibrocystic change with columnar cell change, sclerosing adenosis with microcalcifications and radial sclerosing lesion/radial scar, no evidence of malignancy. Because of the radial scar a wider excision was recommended and she subsequently underwent left breast lumpectomy with localizer on 12/26/2023. Pathology did reveal a single focus of ductal atypia with calcifications and thermal crush artifact, compatible with atypical ductal hyperplasia and focal flat epithelial atypia. Her family history is significant for a maternal aunt with breast cancer in a paternal grandmother with ovarian cancer. Her brother was treated for melanoma. She underwent genetic testing on 11/27/2023. This revealed no clinically significant mutations. No variance of uncertain significance were identified. Her breast cancer risk score was calculated at 32.3% placing her at high risk for breast cancer. She is . She was evaluated by Dr. Hooks and placed on tamoxifen. She is tolerating this well but does note some leg cramps and hair loss. She denies any new breast symptoms. Follow-up mammogram performed on 09/30/2024 revealed no mammographic evidence of malignancy (BI-RADS 2). A breast MRI has been ordered by Dr. Hooks for March 2025. She also reports a soft tissue mass located in the posterior right shoulder which does not cause any symptoms. She is not particularly concerned about this lesion. [facility] Medical History Microalbuminuria Hx: UTI (urinary tract infection) Asthma Depression Anxiety Migraines Annual physical exam (~12/16/24) Surgical History History of lumpectomy of right breast (12/26/23) H/O surgical removal of hymen H/O removal of cyst Hx of tonsillectomy Family History Maternal Aunt H/O mastectomy Breast CA, Onset Age: 36 Father HTN (hypertension) Hypercholesteremia Brother Melanoma Paternal Grandmother Ovarian cancer Paternal Uncle FH: mental illness Substance use Paternal Aunt FH: mental illness Substance use Other Diabetes Social History Household Members: Spouse and Family Housing: House Are you a primary nurse behavioral health care to a significant other at home: No Do you presently have visiting nurse or other home services: No Alcohol intake: never Patient Tobacco Use Status: Never used Tobacco e-Cigarette/Vaping Use: Never Used Second Hand Smoke Exposure: No service: No Current occupational status: employed 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 Current occupational exposures/hazards: No Gender identity: Female Cognitive needs: No Hearing needs: No Vision needs: No Female Reproductive History Menstrual Age of Menarche: 12 Review of Systems Const All systems reviewed & are unremarkable except as noted in HPI and below Physical Exam Const General: no acute distress Nutritional Appearance: well nourished Orientation/consciousness: patient oriented x3 Chest Other: Left breast: No skin change, no nipple retraction, no nipple discharge, no palpable mass, no enlarged lymph nodes, well-healed incision in the periareolar location, 12:00 o'clock as noted below. Right breast: No skin change, no nipple retraction, no nipple discharge, no palpable mass, no enlarged lymph nodes Chest/axillae images: 2 1. Resp Effort & Inspection: normal respiratory effort, no audible wheezes, no cough and no respiratory distress GI Inspection: Yes normal to inspection Back/Spine/Pelvis Other: Soft tissue mass located in her right posterior shoulder measuring approximately 2 cm in diameter. Lesion is mobile within the subcutaneous tissue and most consistent with a lipoma. Back/spine/pelvis image: 2 1. Lipoma posterior right shoulder Neuro Other: Mobility Assessment: 1. 3 meter assessment time (seconds): 4 2. Gait observations: Normal balance and gait General: patient oriented x3 Extrem General: Yes normal to inspection Assessment & Plan Assessment & Plan (1) Atypical ductal hyperplasia of left breast: Code(s): N60.92 - Unspecified benign mammary dysplasia of left breast Category: Medical (2) Family history of breast cancer in female: Code(s): Z80.3 - Family history of malignant neoplasm of breast Category: Medical (3) Increased risk of breast cancer: Code(s): Z91.89 - Other specified personal risk factors, not elsewhere classified Category: Medical (4) Lipoma: Code(s): D17.9 - Benign lipomatous neoplasm, unspecified Category: Medical Qualifiers: Lipoma location: trunk Qualified Code(s): D17.1 - Benign lipomatous neoplasm of skin and subcutaneous tissue of trunk Plan 44-year-old female patient diagnosed with atypical ductal hyperplasia of the left breast following a lumpectomy for radial scar. She continues on her high risk protocol with twice yearly clinical breast exams, yearly mammogram and breast MRIs alternating every 6 months. Examination today reveals no suspicious findings in either breast. Follow-up mammogram of 09/30/2024 revealed no mammographic evidence of malignancy (BI-RADS 2). She will be scheduled for a breast MRI per Dr. Hooks in March 2025. I recommended follow-up examination in 6 months. She was noted to have a soft tissue mass in the posterior right shoulder which on examination is a lipoma within the subcutaneous tissue. I reviewed the procedure for excision of this lesion. She has the option of excision versus continued observation. After discussion of the procedure she wishes to hold off on any surgery and will call should the lesion becomes symptomatic. Coding Level of Care Code Est Pt Level 3 (36129) Complex EM visit Add On [id number] Diagnoses Atypical ductal hyperplasia of left breast N60.92 Family history of breast cancer in female Z80.3 Increased risk of breast cancer Z91.89 Lipoma of torso D17.1 Lipoma location: trunk
[2025-01-19 12:05] VITALS: BP 112/72; BMI 21.7
== END 2025-01-19 12:06 | disposition home or self-care (01) ==
LOC: HO.HGS 11:54
PROVIDERS: PCP Nurse Practitioner Family; Visit Provider Surgery
DX: N60.92 Unspecified benign mammary dysplasia of left breast (principal); Z80.3 Family history of malignant neoplasm of breast; Z91.89 Other specified personal risk factors, not elsewhere classified; D17.1 Benign lipomatous neoplasm of skin and subcutaneous tissue of trunk
CPT/HCPCS: 99213

== ENCOUNTER 2025-02-05 13:48 | Outpatient (REF) | payer OTHER, SELFPAY ==
--- NOTE | ~2025-02-05 | US_ITS ---
EXAMINATION: US TRIPLEX LOWER EXTREMITY, RIGHT CLINICAL INFORMATION: R25.2, Right leg - Cramp and spasm COMPARISON: None available. TECHNIQUE: Color-flow triplex imaging with spectral analysis and compression Doppler were performed on the right lower extremity. FINDINGS: Respiratory variation, normal compression and augmented flow are noted throughout the right lower extremity. The visualized common femoral vein, superficial femoral vein, profunda femoral vein, popliteal vein and midcalf peroneal and posterior tibial venous segments show no evidence of deep venous thrombosis. In the subcutaneous soft tissues in the medial mid calf, there is a circumscribed area that is hyperechogenic compared to adjacent subcutaneous fat measuring 24 x 9 x 10 mm. It demonstrates no blood flow on color Doppler. US/US venous duplex LE RT IMPRESSION: No evidence of deep venous thrombosis involving the right lower extremity. There is an echogenic focus in the subcutaneous soft tissues in the medial right thigh has a nonspecific appearance. It could represent lipoma, ecchymosis, or other abnormality. Electronically signed by: Kaden Babin MD 02/05/2025 03:07 PM EDT
== END 2025-02-05 13:49 | disposition home or self-care (01) ==
LOC: HO.US 13:48
PROVIDERS: PCP Nurse Practitioner Family; Visit Provider Nurse Practitioner Family
DX: R25.2 Cramp and spasm (principal)
CPT/HCPCS: 93971

== ENCOUNTER → 2025-02-05 13:52 | Outpatient (BNV) | payer OTHER, SELFPAY | PROVIDERS: PCP Nurse Practitioner Family; Visit Provider Radiology Diagnostic Radiology | DX: M79.89 Other specified soft tissue disorders (principal) | CPT/HCPCS: 93971 ==